=== PATIENT | male | born 1965 | race Caucasian/White ===

== ENCOUNTER 2020-04-26 02:12 | Outpatient (CLI) | payer OTHER, SELFPAY ==
[2020-04-26 10:57] LABS: CREATININE 0.7 mg/dL (0.70-1.30)
== END 2020-04-26 02:13 | disposition home or self-care (01) ==
LOC: LBO 02:12
PROVIDERS: Visit Provider Radiology Radiation Oncology
DX: C34.11 Malignant neoplasm of upper lobe, right bronchus or lung (principal)
CPT/HCPCS: 36415; 82565

== ENCOUNTER 2020-05-08 04:30 | Outpatient (CLI) | payer OTHER, SELFPAY ==
[2020-05-08 08:04] LABS: Abs Immature Grans 0.03 10^3/uL (0.0-0.06); Absolute Basophil Count 0.12 10^3/uL (0.0-0.2); Absolute Eosinophil Count 0.34 10^3/uL (0.0-0.7); Absolute Lymphocyte Count 1.87 10^3/uL (1.2-3.4); Absolute Monocyte Count 0.93 10^3/uL (0.1-0.8); Absolute Neutrophil Count 6.92 10^3/uL (1.2-6.7); Basophils % 1.2; Eosinophils % 3.3; HCT 50.4 % (40.0-50.0); HGB 16.4 g/dL (13.5-17.5); Immature Grans % 0.3; Lymphocytes % 18.3; MCH 28.8 pg (27.0-33.0); MCHC 32.5 % (32.0-36.0); MCV 88.4 fL (80-95); Monocytes % 9.1; Neutrophils % 67.8; Nucleated RBC 0 %; Platelet Count 373 10^3/uL (130-400); RDW 13.3 % (11.8-14.1); RDW-SD 43.4 fL; WBC 10.21 10^3/uL (4.4-10.8)
[2020-05-08 08:12] LABS: ALT 17 U/L (16-63); AST 34 U/L (15-37); Albumin 3.3 g/dL (3.4-5.0); Alkaline Phosphatase 132 U/L (46-116); Anion Gap 7.9 mmol/L (3-11); BUN 9 mg/dL (7-18); Bilirubin, Total 0.5 mg/dL (0.2-1.0); CO2 27.1 mmol/L (21.0-32.0); CREATININE 0.8 mg/dL (0.70-1.30); Calcium 8.7 mg/dL (8.5-10.1); Chloride 102 mmol/L (98-107); Glucose 202 mg/dL (74-106); Magnesium 1.9 mg/dL (1.8-2.4); Potassium 3.8 mmol/L (3.5-5.1); Sodium 137 mmol/L (136-145); Total Protein 7.7 g/dL (6.4-8.2)
== END 2020-05-08 04:31 | disposition home or self-care (01) ==
LOC: LBO 04:30
PROVIDERS: Visit Provider Internal Medicine Medical Oncology
DX: C34.11 Malignant neoplasm of upper lobe, right bronchus or lung (principal)
CPT/HCPCS: 36415; 80053; 83735; 85025

== ENCOUNTER 2020-05-15 04:32 | Outpatient (CLI) | payer OTHER, SELFPAY ==
[2020-05-15 09:45] LABS: Abs Immature Grans 0.07 10^3/uL (0.0-0.06); Absolute Basophil Count 0.08 10^3/uL (0.0-0.2); Absolute Eosinophil Count 0.36 10^3/uL (0.0-0.7); Absolute Lymphocyte Count 1.11 10^3/uL (1.2-3.4); Absolute Monocyte Count 1.03 10^3/uL (0.1-0.8); Basophils % 0.9; Eosinophils % 4.2; HCT 46.8 % (40.0-50.0); HGB 15.5 g/dL (13.5-17.5); Immature Grans % 0.8; MCH 29.2 pg (27.0-33.0); MCHC 33.1 % (32.0-36.0); MCV 88.3 fL (80-95); Neutrophils % 69.1; Nucleated RBC 0 %; Platelet Count 298 10^3/uL (130-400); RDW 13.3 % (11.8-14.1); RDW-SD 42.9 fL; WBC 8.55 10^3/uL (4.4-10.8)
[2020-05-15 10:02] LABS: ALT 16 U/L (16-63); AST 27 U/L (15-37); Albumin 3.3 g/dL (3.4-5.0); Alkaline Phosphatase 122 U/L (46-116); Anion Gap 8.4 mmol/L (3-11); BUN 11 mg/dL (7-18); Bilirubin, Total 0.3 mg/dL (0.2-1.0); CO2 27.6 mmol/L (21.0-32.0); CREATININE 0.7 mg/dL (0.70-1.30); Chloride 104 mmol/L (98-107); Glucose 138 mg/dL (74-106); Potassium 3.7 mmol/L (3.5-5.1); Sodium 140 mmol/L (136-145); Total Protein 7.4 g/dL (6.4-8.2)
== END 2020-05-15 04:33 | disposition home or self-care (01) ==
LOC: LBN 04:32
PROVIDERS: Visit Provider Internal Medicine Medical Oncology
DX: C34.11 Malignant neoplasm of upper lobe, right bronchus or lung (principal)
CPT/HCPCS: 80053; 83735; 85025

== ENCOUNTER 2020-05-22 04:08 | Outpatient (CLI) | payer OTHER, SELFPAY ==
[2020-05-22 08:01] LABS: Abs Immature Grans 0.08 10^3/uL (0.0-0.06); Absolute Basophil Count 0.06 10^3/uL (0.0-0.2); Absolute Lymphocyte Count 0.63 10^3/uL (1.2-3.4); Absolute Monocyte Count 1.01 10^3/uL (0.1-0.8); Absolute Neutrophil Count 5.84 10^3/uL (1.2-6.7); Basophils % 0.8; Eosinophils % 2.6; HCT 43.8 % (40.0-50.0); HGB 14.4 g/dL (13.5-17.5); Lymphocytes % 8.1; MCH 29.1 pg (27.0-33.0); MCHC 32.9 % (32.0-36.0); MCV 88.7 fL (80-95); MPV 8.7 fL (8.0-11.0); Monocytes % 12.9; Neutrophils % 74.6; Nucleated RBC 0 %; Platelet Count 245 10^3/uL (130-400); RBC 4.94 10^6/uL (4.36-5.78); RDW 13.5 % (11.8-14.1); RDW-SD 43.8 fL; WBC 7.82 10^3/uL (4.4-10.8)
[2020-05-22 08:21] LABS: ALT 14 U/L (16-63); AST 24 U/L (15-37); Albumin 3.1 g/dL (3.4-5.0); Alkaline Phosphatase 119 U/L (46-116); Anion Gap 9.8 mmol/L (3-11); BUN 9 mg/dL (7-18); Bilirubin, Total 0.5 mg/dL (0.2-1.0); CO2 27.2 mmol/L (21.0-32.0); CREATININE 0.8 mg/dL (0.70-1.30); Calcium 8.8 mg/dL (8.5-10.1); Chloride 101 mmol/L (98-107); Glucose 163 mg/dL (74-106); Magnesium 1.8 mg/dL (1.8-2.4); Sodium 138 mmol/L (136-145); Total Protein 7.3 g/dL (6.4-8.2)
== END 2020-05-22 04:09 | disposition home or self-care (01) ==
LOC: LBO 04:08
PROVIDERS: PCP Nurse Practitioner Family; Visit Provider Internal Medicine Medical Oncology
DX: C34.11 Malignant neoplasm of upper lobe, right bronchus or lung (principal)
CPT/HCPCS: 36415; 80053; 83735; 85025

== ENCOUNTER 2020-05-29 03:21 | Outpatient (CLI) | payer OTHER, SELFPAY ==
[2020-05-29 07:35] LABS: Abs Immature Grans 0.09 10^3/uL (0.0-0.06); Absolute Basophil Count 0.07 10^3/uL (0.0-0.2); Absolute Eosinophil Count 0.13 10^3/uL (0.0-0.7); Absolute Lymphocyte Count 0.77 10^3/uL (1.2-3.4); Absolute Monocyte Count 0.74 10^3/uL (0.1-0.8); Absolute Neutrophil Count 4.69 10^3/uL (1.2-6.7); Basophils % 1.1; HGB 14.7 g/dL (13.5-17.5); Immature Grans % 1.4; Lymphocytes % 11.9; MCH 29.5 pg (27.0-33.0); MCHC 33.4 % (32.0-36.0); MCV 88.2 fL (80-95); MPV 8.5 fL (8.0-11.0); Monocytes % 11.4; Neutrophils % 72.2; Nucleated RBC 0 %; Platelet Count 269 10^3/uL (130-400); RBC 4.99 10^6/uL (4.36-5.78); RDW 13.8 % (11.8-14.1); WBC 6.49 10^3/uL (4.4-10.8)
[2020-05-29 07:53] LABS: ALT 14 U/L (16-63); AST 17 U/L (15-37); Albumin 3.1 g/dL (3.4-5.0); Alkaline Phosphatase 118 U/L (46-116); Anion Gap 7.5 mmol/L (3-11); BUN 11 mg/dL (7-18); Bilirubin, Total 0.4 mg/dL (0.2-1.0); CO2 26.5 mmol/L (21.0-32.0); CREATININE 0.8 mg/dL (0.70-1.30); Calcium 8.6 mg/dL (8.5-10.1); Chloride 104 mmol/L (98-107); Glucose 162 mg/dL (74-106); Magnesium 1.8 mg/dL (1.8-2.4); Potassium 3.8 mmol/L (3.5-5.1); Sodium 138 mmol/L (136-145); Total Protein 7.3 g/dL (6.4-8.2)
== END 2020-05-29 03:22 | disposition home or self-care (01) ==
LOC: LBO 03:21
PROVIDERS: PCP Nurse Practitioner Family; Visit Provider Internal Medicine Medical Oncology
DX: C34.11 Malignant neoplasm of upper lobe, right bronchus or lung (principal)
CPT/HCPCS: 36415; 80053; 83735; 85025

== ENCOUNTER 2020-06-05 04:19 | Outpatient (CLI) | payer OTHER, SELFPAY ==
[2020-06-05 07:46] LABS: Abs Immature Grans 0.06 10^3/uL (0.0-0.06); Absolute Basophil Count 0.06 10^3/uL (0.0-0.2); Absolute Eosinophil Count 0.16 10^3/uL (0.0-0.7); Absolute Lymphocyte Count 0.92 10^3/uL (1.2-3.4); Absolute Neutrophil Count 3.71 10^3/uL (1.2-6.7); Basophils % 1.1; Eosinophils % 2.9; HCT 45.1 % (40.0-50.0); HGB 14.9 g/dL (13.5-17.5); Immature Grans % 1.1; Lymphocytes % 16.4; MCH 28.8 pg (27.0-33.0); MCV 87.2 fL (80-95); MPV 8.7 fL (8.0-11.0); Monocytes % 12.5; Nucleated RBC 0 %; Platelet Count 211 10^3/uL (130-400); RBC 5.17 10^6/uL (4.36-5.78); RDW 13.9 % (11.8-14.1); RDW-SD 43.8 fL; WBC 5.61 10^3/uL (4.4-10.8)
[2020-06-05 07:59] LABS: ALT 18 U/L (16-63); AST 16 U/L (15-37); Albumin 3.1 g/dL (3.4-5.0); Alkaline Phosphatase 107 U/L (46-116); Anion Gap 7.4 mmol/L (3-11); BUN 12 mg/dL (7-18); Bilirubin, Total 0.4 mg/dL (0.2-1.0); CO2 27.6 mmol/L (21.0-32.0); CREATININE 0.8 mg/dL (0.70-1.30); Calcium 8.6 mg/dL (8.5-10.1); Chloride 103 mmol/L (98-107); Glucose 200 mg/dL (74-106); Magnesium 1.9 mg/dL (1.8-2.4); Potassium 3.9 mmol/L (3.5-5.1); Sodium 138 mmol/L (136-145); Total Protein 7.3 g/dL (6.4-8.2)
== END 2020-06-05 04:20 | disposition home or self-care (01) ==
LOC: LBO 04:19
PROVIDERS: PCP Nurse Practitioner Family; Visit Provider Internal Medicine Medical Oncology
DX: C34.11 Malignant neoplasm of upper lobe, right bronchus or lung (principal)
CPT/HCPCS: 36415; 80053; 83735; 85025

== ENCOUNTER 2020-06-12 02:24 | Outpatient (CLI) | payer OTHER, SELFPAY ==
[2020-06-12 07:34] LABS: HCT 41.9 % (40.0-50.0); HGB 13.9 g/dL (13.5-17.5); MCHC 33.2 % (32.0-36.0); MCV 87.3 fL (80-95); MPV 8.4 fL (8.0-11.0); Nucleated RBC 0 %; Platelet Count 191 10^3/uL (130-400); RDW 13.9 % (11.8-14.1); RDW-SD 44.5 fL; WBC 5.34 10^3/uL (4.4-10.8)
[2020-06-12 07:47] LABS: ALT 17 U/L (16-63); AST 16 U/L (15-37); Alkaline Phosphatase 103 U/L (46-116); Anion Gap 8.7 mmol/L (3-11); BUN 11 mg/dL (7-18); Bilirubin, Total 0.3 mg/dL (0.2-1.0); CO2 27.3 mmol/L (21.0-32.0); CREATININE 0.7 mg/dL (0.70-1.30); Calcium 8.6 mg/dL (8.5-10.1); Chloride 104 mmol/L (98-107); Glucose 139 mg/dL (74-106); Magnesium 1.7 mg/dL (1.8-2.4); Potassium 3.7 mmol/L (3.5-5.1); Sodium 140 mmol/L (136-145); Total Protein 7.2 g/dL (6.4-8.2)
[2020-06-12 08:02] LABS: Absolute Neutrophil Count 3.26 10^3/uL (1.2-6.7)
[2020-06-12 08:03] LABS: Absolute Eosinophil Count 0.11 10^3/uL (0.0-0.7); Absolute Lymphocyte Count 1.17 10^3/uL (1.2-3.4); Atypical Lymphocytes % 9; Diff Comment Manual Differential; RBC Morphology Normal
== END 2020-06-12 02:25 | disposition home or self-care (01) ==
LOC: LBO 02:24
PROVIDERS: PCP Nurse Practitioner Family; Visit Provider Internal Medicine Medical Oncology
DX: C34.11 Malignant neoplasm of upper lobe, right bronchus or lung (principal)
CPT/HCPCS: 36415; 80053; 83735; 85025

== ENCOUNTER 2020-06-19 03:29 | Outpatient (CLI) | payer OTHER, SELFPAY ==
[2020-06-19 07:55] LABS: Abs Immature Grans 0.06 10^3/uL (0.0-0.06); Absolute Basophil Count 0.06 10^3/uL (0.0-0.2); Absolute Eosinophil Count 0.21 10^3/uL (0.0-0.7); Absolute Lymphocyte Count 1.05 10^3/uL (1.2-3.4); Absolute Monocyte Count 0.58 10^3/uL (0.1-0.8); Absolute Neutrophil Count 3.51 10^3/uL (1.2-6.7); Basophils % 1.1; Eosinophils % 3.8; HCT 41.1 % (40.0-50.0); HGB 13.8 g/dL (13.5-17.5); Immature Grans % 1.1; Lymphocytes % 19.2; MCH 29.2 pg (27.0-33.0); MCHC 33.6 % (32.0-36.0); MCV 87.1 fL (80-95); MPV 8.6 fL (8.0-11.0); Monocytes % 10.6; Neutrophils % 64.2; Nucleated RBC 0 %; Platelet Count 214 10^3/uL (130-400); RBC 4.72 10^6/uL (4.36-5.78); RDW 14.1 % (11.8-14.1); RDW-SD 43.9 fL; WBC 5.47 10^3/uL (4.4-10.8)
[2020-06-19 08:11] LABS: ALT 20 U/L (16-63); AST 17 U/L (15-37); Alkaline Phosphatase 100 U/L (46-116); Anion Gap 7.9 mmol/L (3-11); BUN 12 mg/dL (7-18); Bilirubin, Total 0.4 mg/dL (0.2-1.0); CO2 25.1 mmol/L (21.0-32.0); CREATININE 0.8 mg/dL (0.70-1.30); Calcium 8.4 mg/dL (8.5-10.1); Chloride 105 mmol/L (98-107); Glucose 182 mg/dL (74-106); Magnesium 1.8 mg/dL (1.8-2.4); Potassium 3.9 mmol/L (3.5-5.1); Sodium 138 mmol/L (136-145); Total Protein 7.6 g/dL (6.4-8.2)
== END 2020-06-19 03:30 | disposition home or self-care (01) ==
LOC: LBO 03:29
PROVIDERS: PCP Nurse Practitioner Family; Visit Provider Internal Medicine Medical Oncology
DX: C34.11 Malignant neoplasm of upper lobe, right bronchus or lung (principal)
CPT/HCPCS: 36415; 80053; 83735; 85025

== ENCOUNTER 2020-07-17 04:38 | Outpatient (CLI) | payer OTHER, SELFPAY ==
[2020-07-17 13:39] LABS: Abs Immature Grans 0.03 10^3/uL (0.0-0.06); Absolute Basophil Count 0.09 10^3/uL (0.0-0.2); Absolute Eosinophil Count 0.26 10^3/uL (0.0-0.7); Absolute Lymphocyte Count 1.19 10^3/uL (1.2-3.4); Absolute Monocyte Count 0.88 10^3/uL (0.1-0.8); Absolute Neutrophil Count 5.69 10^3/uL (1.2-6.7); Basophils % 1.1; Eosinophils % 3.2; HCT 42.2 % (40.0-50.0); HGB 14.6 g/dL (13.5-17.5); Immature Grans % 0.4; Lymphocytes % 14.6; MCH 30.8 pg (27.0-33.0); MCHC 34.6 % (32.0-36.0); MPV 8.8 fL (8.0-11.0); Monocytes % 10.8; Neutrophils % 69.9; Nucleated RBC 0 %; Platelet Count 311 10^3/uL (130-400); RBC 4.74 10^6/uL (4.36-5.78); RDW 15.5 % (11.8-14.1); RDW-SD 50.7 fL; WBC 8.14 10^3/uL (4.4-10.8)
[2020-07-17 13:52] LABS: ALT 15 U/L (16-63); AST 14 U/L (15-37); Albumin 3.2 g/dL (3.4-5.0); Alkaline Phosphatase 129 U/L (46-116); Anion Gap 6.8 mmol/L (3-11); BUN 15 mg/dL (7-18); Bilirubin, Total 0.3 mg/dL (0.2-1.0); CO2 27.2 mmol/L (21.0-32.0); Calcium 8.7 mg/dL (8.5-10.1); Chloride 103 mmol/L (98-107); Glucose 164 mg/dL (74-106); Magnesium 1.8 mg/dL (1.8-2.4); Potassium 3.7 mmol/L (3.5-5.1); Sodium 137 mmol/L (136-145); Total Protein 7.7 g/dL (6.4-8.2)
== END 2020-07-17 04:39 | disposition home or self-care (01) ==
LOC: LBO 04:38
PROVIDERS: PCP Nurse Practitioner Family; Visit Provider Internal Medicine Medical Oncology
DX: C34.11 Malignant neoplasm of upper lobe, right bronchus or lung (principal)
CPT/HCPCS: 36415; 80053; 83735; 85025

== ENCOUNTER 2020-08-16 02:28 | Outpatient (CLI) | payer OTHER, SELFPAY ==
[2020-08-16 10:45] LABS: Abs Immature Grans 0.09 10^3/uL (0.0-0.06); Absolute Basophil Count 0.07 10^3/uL (0.0-0.2); Absolute Eosinophil Count 0.31 10^3/uL (0.0-0.7); Absolute Lymphocyte Count 1.01 10^3/uL (1.2-3.4); Absolute Monocyte Count 2.34 10^3/uL (0.1-0.8); Basophils % 0.5; Eosinophils % 2.2; HCT 46.9 % (40.0-50.0); HGB 15.9 g/dL (13.5-17.5); Immature Grans % 0.6; Lymphocytes % 7.2; MCH 31.3 pg (27.0-33.0); MCHC 33.9 % (32.0-36.0); MCV 92.3 fL (80-95); MPV 8.8 fL (8.0-11.0); Monocytes % 16.7; Neutrophils % 72.8; Nucleated RBC 0 %; Platelet Count 297 10^3/uL (130-400); RBC 5.08 10^6/uL (4.36-5.78); RDW 14.6 % (11.8-14.1); RDW-SD 49.8 fL
[2020-08-16 10:51] LABS: ALT 14 U/L (16-63); AST 12 U/L (15-37); Albumin 3.2 g/dL (3.4-5.0); Alkaline Phosphatase 133 U/L (46-116); Anion Gap 9.2 mmol/L (3-11); BUN 11 mg/dL (7-18); Bilirubin, Total 0.7 mg/dL (0.2-1.0); CO2 27.8 mmol/L (21.0-32.0); CREATININE 0.8 mg/dL (0.70-1.30); Calcium 8.9 mg/dL (8.5-10.1); Chloride 99 mmol/L (98-107); Glucose 127 mg/dL (74-106); Potassium 3.9 mmol/L (3.5-5.1); Sodium 136 mmol/L (136-145)
[2020-08-16 10:57] LABS: Absolute Neutrophil Count 10.19 10^3/uL (1.2-6.7)
[2020-08-16 10:58] LABS: Diff Comment Diff Reviewed; RBC Morphology Normal
== END 2020-08-16 02:29 | disposition home or self-care (01) ==
LOC: LBO 02:28
PROVIDERS: PCP Nurse Practitioner Family; Visit Provider Internal Medicine Medical Oncology
DX: C34.11 Malignant neoplasm of upper lobe, right bronchus or lung (principal)
CPT/HCPCS: 36415; 80053; 83735; 85025

== ENCOUNTER 2020-09-13 03:34 | Outpatient (CLI) | payer OTHER, SELFPAY ==
[2020-09-13 13:18] LABS: Abs Immature Grans 0.04 10^3/uL (0.0-0.06); Absolute Basophil Count 0.06 10^3/uL (0.0-0.2); Absolute Eosinophil Count 0.43 10^3/uL (0.0-0.7); Absolute Lymphocyte Count 1.07 10^3/uL (1.2-3.4); Absolute Monocyte Count 1.24 10^3/uL (0.1-0.8); Absolute Neutrophil Count 6.44 10^3/uL (1.2-6.7); Basophils % 0.6; Eosinophils % 4.6; HCT 43.1 % (40.0-50.0); HGB 14.2 g/dL (13.5-17.5); Immature Grans % 0.4; Lymphocytes % 11.5; MCH 30.2 pg (27.0-33.0); MCHC 32.9 % (32.0-36.0); MCV 91.7 fL (80-95); MPV 8.6 fL (8.0-11.0); Monocytes % 13.4; Neutrophils % 69.5; Nucleated RBC 0 %; Platelet Count 417 10^3/uL (130-400); RDW-SD 41.2 fL; WBC 9.28 10^3/uL (4.4-10.8)
[2020-09-13 13:44] LABS: ALT 15 U/L (16-63); AST 13 U/L (15-37); Albumin 2.8 g/dL (3.4-5.0); Alkaline Phosphatase 128 U/L (46-116); Anion Gap 8.2 mmol/L (3-11); BUN 13 mg/dL (7-18); Bilirubin, Total 0.2 mg/dL (0.2-1.0); CO2 27.8 mmol/L (21.0-32.0); CREATININE 0.8 mg/dL (0.70-1.30); Calcium 8.9 mg/dL (8.5-10.1); Chloride 102 mmol/L (98-107); FREE T4 1.39 ng/dL (0.76-1.46); Glucose 193 mg/dL (74-106); Magnesium 1.9 mg/dL (1.8-2.4); Potassium 3.5 mmol/L (3.5-5.1); Sodium 138 mmol/L (136-145); Total Protein 7.5 g/dL (6.4-8.2)
[2020-09-13 13:45] LABS: TSH < 0.01 uIU/mL (0.36-3.74)
== END 2020-09-13 03:35 | disposition home or self-care (01) ==
LOC: LBO 03:34
PROVIDERS: PCP Nurse Practitioner Family; Visit Provider Internal Medicine Medical Oncology
DX: C34.11 Malignant neoplasm of upper lobe, right bronchus or lung (principal); Z79.899 Other long term (current) drug therapy
CPT/HCPCS: 36415; 80053; 83735; 84439; 84443; 85025

== ENCOUNTER 2020-10-09 03:37 | Outpatient (CLI) | payer OTHER, SELFPAY ==
[2020-10-09 14:26] LABS: Abs Immature Grans 0.04 10^3/uL (0.0-0.06); Absolute Basophil Count 0.08 10^3/uL (0.0-0.2); Absolute Lymphocyte Count 1.15 10^3/uL (1.2-3.4); Absolute Monocyte Count 0.89 10^3/uL (0.1-0.8); Absolute Neutrophil Count 6.21 10^3/uL (1.2-6.7); Basophils % 0.9; Eosinophils % 5.6; HCT 47.3 % (40.0-50.0); HGB 15.4 g/dL (13.5-17.5); Immature Grans % 0.5; MCH 29.1 pg (27.0-33.0); MCHC 32.6 % (32.0-36.0); MCV 89.4 fL (80-95); MPV 8.8 fL (8.0-11.0); Nucleated RBC 0 %; Platelet Count 374 10^3/uL (130-400); RBC 5.29 10^6/uL (4.36-5.78); RDW 12.4 % (11.8-14.1); WBC 8.87 10^3/uL (4.4-10.8)
[2020-10-09 14:35] LABS: Magnesium 1.8 mg/dL (1.8-2.4)
[2020-10-09 14:51] LABS: ALT 14 U/L (16-63); AST 14 U/L (15-37); Albumin 2.9 g/dL (3.4-5.0); Alkaline Phosphatase 143 U/L (46-116); Anion Gap 7.8 mmol/L (3-11); BUN 12 mg/dL (7-18); Bilirubin, Total 0.2 mg/dL (0.2-1.0); CO2 27.2 mmol/L (21.0-32.0); CREATININE 0.9 mg/dL (0.70-1.30); Calcium 9.1 mg/dL (8.5-10.1); Chloride 102 mmol/L (98-107); FREE T4 1.08 ng/dL (0.76-1.46); Glucose 187 mg/dL (74-106); Potassium 3.7 mmol/L (3.5-5.1); Sodium 137 mmol/L (136-145); Total Protein 7.6 g/dL (6.4-8.2)
[2020-10-09 14:52] LABS: TSH < 0.01 uIU/mL (0.36-3.74)
== END 2020-10-09 03:38 | disposition home or self-care (01) ==
LOC: LBO 03:37
PROVIDERS: PCP Nurse Practitioner Family; Visit Provider Internal Medicine Medical Oncology
DX: C34.11 Malignant neoplasm of upper lobe, right bronchus or lung (principal); Z79.899 Other long term (current) drug therapy
CPT/HCPCS: 36415; 80053; 83735; 84439; 84443; 85025

== ENCOUNTER 2020-11-06 03:23 | Outpatient (CLI) | payer OTHER, SELFPAY ==
[2020-11-06 12:32] LABS: Abs Immature Grans 0.03 10^3/uL (0.0-0.06); Absolute Basophil Count 0.09 10^3/uL (0.0-0.2); Absolute Eosinophil Count 0.38 10^3/uL (0.0-0.7); Absolute Lymphocyte Count 1.28 10^3/uL (1.2-3.4); Absolute Neutrophil Count 6.42 10^3/uL (1.2-6.7); Basophils % 0.9; HCT 48.4 % (40.0-50.0); HGB 15.9 g/dL (13.5-17.5); Immature Grans % 0.3; Lymphocytes % 13.5; MCH 28.5 pg (27.0-33.0); MCHC 32.9 % (32.0-36.0); MCV 86.7 fL (80-95); MPV 8.8 fL (8.0-11.0); Monocytes % 13.7; Neutrophils % 67.6; Nucleated RBC 0 %; Platelet Count 323 10^3/uL (130-400); RBC 5.58 10^6/uL (4.36-5.78); RDW 13.8 % (11.8-14.1); RDW-SD 44.1 fL
[2020-11-06 14:02] LABS: ALT 13 U/L (16-63); AST 14 U/L (15-37); Albumin 3.2 g/dL (3.4-5.0); Alkaline Phosphatase 149 U/L (46-116); Anion Gap 9.3 mmol/L (3-11); BUN 14 mg/dL (7-18); Bilirubin, Total 0.3 mg/dL (0.2-1.0); CO2 24.7 mmol/L (21.0-32.0); CREATININE 0.7 mg/dL (0.70-1.30); Calcium 8.8 mg/dL (8.5-10.1); Chloride 103 mmol/L (98-107); FREE T4 0.81 ng/dL (0.76-1.46); Glucose 115 mg/dL (74-106); Potassium 3.8 mmol/L (3.5-5.1); Sodium 137 mmol/L (136-145); TSH 0.12 uIU/mL (0.36-3.74); Total Protein 7.7 g/dL (6.4-8.2)
== END 2020-11-06 03:24 | disposition home or self-care (01) ==
LOC: LBO 03:23
PROVIDERS: PCP Nurse Practitioner Family; Visit Provider Internal Medicine Medical Oncology
DX: C34.11 Malignant neoplasm of upper lobe, right bronchus or lung (principal); Z79.899 Other long term (current) drug therapy
CPT/HCPCS: 36415; 80053; 83735; 84439; 84443; 85025

== ENCOUNTER 2020-12-04 02:42 | Outpatient (CLI) | payer OTHER, SELFPAY ==
[2020-12-04 13:05] LABS: Abs Immature Grans 0.02 10^3/uL (0.0-0.06); Absolute Basophil Count 0.11 10^3/uL (0.0-0.2); Absolute Eosinophil Count 0.47 10^3/uL (0.0-0.7); Absolute Lymphocyte Count 1.27 10^3/uL (1.2-3.4); Absolute Monocyte Count 1.15 10^3/uL (0.1-0.8); Absolute Neutrophil Count 5.35 10^3/uL (1.2-6.7); Basophils % 1.3; Eosinophils % 5.6; HCT 50.5 % (40.0-50.0); HGB 16.6 g/dL (13.5-17.5); Immature Grans % 0.2; Lymphocytes % 15.2; MCH 29.4 pg (27.0-33.0); MCHC 32.9 % (32.0-36.0); MCV 89.5 fL (80-95); MPV 8.6 fL (8.0-11.0); Monocytes % 13.7; Nucleated RBC 0 %; Platelet Count 284 10^3/uL (130-400); RBC 5.64 10^6/uL (4.36-5.78); RDW-SD 52.6 fL; WBC 8.37 10^3/uL (4.4-10.8)
[2020-12-04 13:28] LABS: ALT 12 U/L (16-63); AST 17 U/L (15-37); Albumin 3.4 g/dL (3.4-5.0); Alkaline Phosphatase 144 U/L (46-116); BUN 12 mg/dL (7-18); Bilirubin, Total 0.3 mg/dL (0.2-1.0); CREATININE 0.8 mg/dL (0.70-1.30); Chloride 103 mmol/L (98-107); FREE T4 0.74 ng/dL (0.76-1.46); Glucose 126 mg/dL (74-106); Potassium 3.8 mmol/L (3.5-5.1); Sodium 141 mmol/L (136-145); TSH 1.25 uIU/mL (0.36-3.74); Total Protein 7.4 g/dL (6.4-8.2)
== END 2020-12-04 02:43 | disposition home or self-care (01) ==
LOC: LBO 02:42
PROVIDERS: PCP Nurse Practitioner Family; Visit Provider Internal Medicine Medical Oncology
DX: C34.11 Malignant neoplasm of upper lobe, right bronchus or lung (principal); Z79.899 Other long term (current) drug therapy
CPT/HCPCS: 36415; 80053; 83735; 84439; 84443; 85025

== ENCOUNTER 2021-01-01 13:05 | Outpatient (CLI) | payer OTHER, SELFPAY ==
[2021-01-01 13:35] LABS: Abs Immature Grans 0.05 10^3/uL (0.0-0.06); Absolute Basophil Count 0.11 10^3/uL (0.0-0.2); Absolute Lymphocyte Count 1.47 10^3/uL (1.2-3.4); Absolute Neutrophil Count 5.57 10^3/uL (1.2-6.7); Basophils % 1.3; Eosinophils % 4.5; HCT 52.8 % (40.0-50.0); HGB 17.4 g/dL (13.5-17.5); Immature Grans % 0.6; Lymphocytes % 16.7; MCH 29.5 pg (27.0-33.0); MCV 89.5 fL (80-95); MPV 8.6 fL (8.0-11.0); Monocytes % 13.6; Neutrophils % 63.3; Nucleated RBC 0 %; Platelet Count 281 10^3/uL (130-400); RDW 16.6 % (11.8-14.1); RDW-SD 54.7 fL
[2021-01-01 13:57] LABS: ALT 19 U/L (16-63); AST 20 U/L (15-37); Albumin 3.5 g/dL (3.4-5.0); Alkaline Phosphatase 124 U/L (46-116); Anion Gap 6.5 mmol/L (3-11); BUN 16 mg/dL (7-18); Bilirubin, Total 0.3 mg/dL (0.2-1.0); CO2 29.5 mmol/L (21.0-32.0); CREATININE 0.8 mg/dL (0.70-1.30); Calcium 8.7 mg/dL (8.5-10.1); Chloride 103 mmol/L (98-107); FREE T4 0.76 ng/dL (0.76-1.46); Glucose 134 mg/dL (74-106); Potassium 3.9 mmol/L (3.5-5.1); Sodium 139 mmol/L (136-145); TSH 1.59 uIU/mL (0.36-3.74); Total Protein 7.6 g/dL (6.4-8.2)
== END 2021-01-01 13:06 | disposition home or self-care (01) ==
PROVIDERS: PCP Nurse Practitioner Family; Visit Provider Internal Medicine Medical Oncology
DX: C34.11 Malignant neoplasm of upper lobe, right bronchus or lung (principal); Z79.899 Other long term (current) drug therapy
CPT/HCPCS: 36415; 80053; 83735; 84439; 84443; 85025

== ENCOUNTER 2021-01-29 09:58 | Outpatient (CLI) | payer OTHER, SELFPAY ==
[2021-01-29 13:12] LABS: Abs Immature Grans 0.07 10^3/uL (0.0-0.06); Absolute Lymphocyte Count 1.43 10^3/uL (1.2-3.4); Absolute Monocyte Count 1.29 10^3/uL (0.1-0.8); Absolute Neutrophil Count 7.63 10^3/uL (1.2-6.7); Basophils % 0.9; Eosinophils % 4.5; HCT 53.1 % (40.0-50.0); HGB 17.6 g/dL (13.5-17.5); Immature Grans % 0.6; MCH 30.2 pg (27.0-33.0); MCHC 33.1 % (32.0-36.0); MCV 91.2 fL (80-95); MPV 8.7 fL (8.0-11.0); Monocytes % 11.7; Neutrophils % 69.3; Nucleated RBC 0 %; Platelet Count 295 10^3/uL (130-400); RBC 5.82 10^6/uL (4.36-5.78); RDW 14.6 % (11.8-14.1); RDW-SD 49.1 fL; WBC 11.01 10^3/uL (4.4-10.8)
[2021-01-29 13:33] LABS: ALT 12 U/L (16-63); AST 12 U/L (15-37); Albumin 3.5 g/dL (3.4-5.0); Alkaline Phosphatase 145 U/L (46-116); Anion Gap 5.1 mmol/L (3-11); BUN 16 mg/dL (7-18); Bilirubin, Total 0.2 mg/dL (0.2-1.0); CO2 29.9 mmol/L (21.0-32.0); CREATININE 0.8 mg/dL (0.70-1.30); Chloride 104 mmol/L (98-107); FREE T4 0.82 ng/dL (0.76-1.46); Glucose 154 mg/dL (74-106); Magnesium 2.2 mg/dL (1.8-2.4); Potassium 3.8 mmol/L (3.5-5.1); Sodium 139 mmol/L (136-145); TSH 0.72 uIU/mL (0.36-3.74); Total Protein 7.7 g/dL (6.4-8.2)
== END 2021-01-29 09:59 | disposition home or self-care (01) ==
LOC: LBO 10:02
PROVIDERS: PCP Nurse Practitioner Family; Visit Provider Internal Medicine Medical Oncology
DX: C34.11 Malignant neoplasm of upper lobe, right bronchus or lung (principal); Z79.899 Other long term (current) drug therapy
CPT/HCPCS: 36415; 80053; 83735; 84439; 84443; 85025

== ENCOUNTER 2021-02-28 02:01 | Outpatient (CLI) | payer BC, SELFPAY ==
[2021-02-28 13:07] LABS: Abs Immature Grans 0.03 10^3/uL (0.0-0.06); Absolute Basophil Count 0.07 10^3/uL (0.0-0.2); Absolute Eosinophil Count 0.38 10^3/uL (0.0-0.7); Absolute Monocyte Count 1.15 10^3/uL (0.1-0.8); Absolute Neutrophil Count 5.71 10^3/uL (1.2-6.7); Basophils % 0.8; Eosinophils % 4.4; HCT 51.9 % (40.0-50.0); HGB 17.4 g/dL (13.5-17.5); Immature Grans % 0.3; MCH 30.4 pg (27.0-33.0); MCHC 33.5 % (32.0-36.0); MCV 90.7 fL (80-95); MPV 8.5 fL (8.0-11.0); Monocytes % 13.3; Neutrophils % 66.2; Nucleated RBC 0 %; Platelet Count 298 10^3/uL (130-400); RBC 5.72 10^6/uL (4.36-5.78); RDW 13.2 % (11.8-14.1); RDW-SD 44.2 fL; WBC 8.64 10^3/uL (4.4-10.8)
[2021-02-28 13:28] LABS: ALT 14 U/L (16-63); AST 15 U/L (15-37); Albumin 3.3 g/dL (3.4-5.0); Alkaline Phosphatase 137 U/L (46-116); Anion Gap 6.2 mmol/L (3-11); BUN 18 mg/dL (7-18); Bilirubin, Total 0.3 mg/dL (0.2-1.0); CO2 27.8 mmol/L (21.0-32.0); CREATININE 0.9 mg/dL (0.70-1.30); Calcium 8.8 mg/dL (8.5-10.1); Chloride 102 mmol/L (98-107); FREE T4 0.86 ng/dL (0.76-1.46); Glucose 221 mg/dL (74-106); Potassium 3.6 mmol/L (3.5-5.1); Sodium 136 mmol/L (136-145); TSH 0.68 uIU/mL (0.36-3.74); Total Protein 7.5 g/dL (6.4-8.2)
== END 2021-02-28 02:02 | disposition home or self-care (01) ==
LOC: LBO 02:01
PROVIDERS: PCP Nurse Practitioner Family; Visit Provider Internal Medicine Medical Oncology
DX: C34.11 Malignant neoplasm of upper lobe, right bronchus or lung (principal); Z79.899 Other long term (current) drug therapy
CPT/HCPCS: 36415; 80053; 83735; 84439; 84443; 85025

== ENCOUNTER 2021-03-26 01:29 | Outpatient (CLI) | payer BC, SELFPAY | END 2021-03-26 01:30 | disposition home or self-care (01) | LOC: LBO 01:31 | PROVIDERS: PCP Nurse Practitioner Family; Visit Provider Internal Medicine Medical Oncology ==

== ENCOUNTER 2021-03-28 02:28 | Outpatient (CLI) | payer BC, SELFPAY ==
[2021-03-28 12:58] LABS: Abs Immature Grans 0.05 10^3/uL (0.0-0.06); Absolute Lymphocyte Count 1.72 10^3/uL (1.2-3.4); Absolute Monocyte Count 1.44 10^3/uL (0.1-0.8); Absolute Neutrophil Count 6.18 10^3/uL (1.2-6.7); HCT 50.1 % (40.0-50.0); HGB 16.9 g/dL (13.5-17.5); Immature Grans % 0.5; Lymphocytes % 17.4; MCH 31.2 pg (27.0-33.0); MCHC 33.7 % (32.0-36.0); MCV 92.6 fL (80-95); MPV 8.7 fL (8.0-11.0); Monocytes % 14.6; Neutrophils % 62.5; Nucleated RBC 0 %; Platelet Count 300 10^3/uL (130-400); RBC 5.41 10^6/uL (4.36-5.78); RDW 13.2 % (11.8-14.1); RDW-SD 45.1 fL; WBC 9.89 10^3/uL (4.4-10.8)
[2021-03-28 13:19] LABS: ALT 13 U/L (16-63); AST 19 U/L (15-37); Albumin 3.5 g/dL (3.4-5.0); Alkaline Phosphatase 126 U/L (46-116); Anion Gap 6.5 mmol/L (3-11); BUN 18 mg/dL (7-18); Bilirubin, Total 0.3 mg/dL (0.2-1.0); CO2 27.5 mmol/L (21.0-32.0); CREATININE 0.9 mg/dL (0.70-1.30); Calcium 8.8 mg/dL (8.5-10.1); Chloride 102 mmol/L (98-107); FREE T4 0.87 ng/dL (0.76-1.46); Glucose 131 mg/dL (74-106); Magnesium 2.2 mg/dL (1.8-2.4); Potassium 3.9 mmol/L (3.5-5.1); Sodium 136 mmol/L (136-145); TSH 0.88 uIU/mL (0.36-3.74); Total Protein 7.5 g/dL (6.4-8.2)
== END 2021-03-28 02:29 | disposition home or self-care (01) ==
LOC: LBO 02:28
PROVIDERS: Internal Medicine Medical Oncology; PCP Nurse Practitioner Family; Visit Provider Family Medicine
DX: C34.11 Malignant neoplasm of upper lobe, right bronchus or lung (principal); Z79.899 Other long term (current) drug therapy
CPT/HCPCS: 36415; 80053; 83735; 84439; 84443; 85025

== ENCOUNTER 2021-04-23 13:17 | Outpatient (CLI) | payer BC, SELFPAY ==
[2021-04-23 13:10] LABS: Abs Immature Grans 0.03 10^3/uL (0.0-0.06); Absolute Basophil Count 0.11 10^3/uL (0.0-0.2); Absolute Eosinophil Count 0.34 10^3/uL (0.0-0.7); Absolute Monocyte Count 0.86 10^3/uL (0.1-0.8); Absolute Neutrophil Count 5.76 10^3/uL (1.2-6.7); Basophils % 1.3; HCT 47.9 % (40.0-50.0); HGB 16.1 g/dL (13.5-17.5); Immature Grans % 0.3; Lymphocytes % 17.4; MCH 31.4 pg (27.0-33.0); MCHC 33.6 % (32.0-36.0); MCV 93.4 fL (80-95); MPV 8.8 fL (8.0-11.0); Nucleated RBC 0 %; Platelet Count 261 10^3/uL (130-400); RBC 5.13 10^6/uL (4.36-5.78); RDW 13.1 % (11.8-14.1); RDW-SD 45.2 fL
[2021-04-23 13:38] LABS: ALT 21 U/L (16-63); AST 15 U/L (15-37); Albumin 3.4 g/dL (3.4-5.0); Alkaline Phosphatase 122 U/L (46-116); Anion Gap 8.1 mmol/L (3-11); BUN 14 mg/dL (7-18); Bilirubin, Total 0.3 mg/dL (0.2-1.0); CO2 26.9 mmol/L (21.0-32.0); Calcium 8.6 mg/dL (8.5-10.1); Chloride 105 mmol/L (98-107); FREE T4 0.81 ng/dL (0.76-1.46); Glucose 174 mg/dL (74-106); Potassium 3.7 mmol/L (3.5-5.1); Sodium 140 mmol/L (136-145); TSH 1.02 uIU/mL (0.36-3.74); Total Protein 7.3 g/dL (6.4-8.2)
== END 2021-04-23 13:18 | disposition home or self-care (01) ==
LOC: LBO 13:20
PROVIDERS: PCP Nurse Practitioner Family; Visit Provider Internal Medicine Medical Oncology
DX: C34.11 Malignant neoplasm of upper lobe, right bronchus or lung (principal); Z79.899 Other long term (current) drug therapy
CPT/HCPCS: 36415; 80053; 83735; 84439; 84443; 85025

== ENCOUNTER 2021-05-21 02:39 | Outpatient (CLI) | payer BC, SELFPAY ==
[2021-05-21 10:52] LABS: FREE T4 0.95 ng/dL (0.76-1.46); TSH 0.95 uIU/mL (0.36-3.74)
[2021-05-21 11:03] LABS: Abs Immature Grans 0.03 10^3/uL (0.0-0.06); Absolute Basophil Count 0.08 10^3/uL (0.0-0.2); Absolute Eosinophil Count 0.19 10^3/uL (0.0-0.7); Absolute Lymphocyte Count 1.53 10^3/uL (1.2-3.4); Absolute Monocyte Count 1.06 10^3/uL (0.1-0.8); Absolute Neutrophil Count 6.31 10^3/uL (1.2-6.7); Basophils % 0.9; Eosinophils % 2.1; HCT 50.2 % (40.0-50.0); HGB 16.6 g/dL (13.5-17.5); Immature Grans % 0.3; Lymphocytes % 16.6; MCH 30.9 pg (27.0-33.0); MCHC 33.1 % (32.0-36.0); MCV 93.5 fL (80-95); Monocytes % 11.5; Neutrophils % 68.6; Nucleated RBC 0 %; Platelet Count 297 10^3/uL (130-400); RBC 5.37 10^6/uL (4.36-5.78); RDW 12.6 % (11.8-14.1); RDW-SD 43.8 fL
[2021-05-21 11:38] LABS: Magnesium 2.2 mg/dL (1.8-2.4)
[2021-05-21 12:21] LABS: ALT 22 U/L (16-63); AST 21 U/L (15-37); Albumin 3.7 g/dL (3.4-5.0); Alkaline Phosphatase 136 U/L (46-116); BUN 12 mg/dL (7-18); Bilirubin, Total 0.4 mg/dL (0.2-1.0); Calcium 8.6 mg/dL (8.5-10.1); Chloride 101 mmol/L (98-107); Glucose 141 mg/dL (74-106); Potassium 3.9 mmol/L (3.5-5.1); Sodium 138 mmol/L (136-145); Total Protein 7.7 g/dL (6.4-8.2)
== END 2021-05-21 02:40 | disposition home or self-care (01) ==
LOC: LBO 02:39
PROVIDERS: PCP Nurse Practitioner Family; Visit Provider Internal Medicine Medical Oncology
DX: C34.11 Malignant neoplasm of upper lobe, right bronchus or lung (principal); Z79.899 Other long term (current) drug therapy
CPT/HCPCS: 36415; 80053; 83735; 84439; 84443; 85025

== ENCOUNTER 2021-06-18 01:42 | Outpatient (CLI) | payer BC, SELFPAY ==
[2021-06-18 09:43] LABS: Abs Immature Grans 0.05 10^3/uL (0.0-0.06); Absolute Eosinophil Count 0.24 10^3/uL (0.0-0.7); Absolute Lymphocyte Count 1.46 10^3/uL (1.2-3.4); Absolute Monocyte Count 0.98 10^3/uL (0.1-0.8); Absolute Neutrophil Count 6.03 10^3/uL (1.2-6.7); Basophils % 1.1; Eosinophils % 2.7; HCT 50.4 % (40.0-50.0); HGB 16.4 g/dL (13.5-17.5); Immature Grans % 0.6; Lymphocytes % 16.5; MCH 29.9 pg (27.0-33.0); MCHC 32.5 % (32.0-36.0); MCV 92 fL (80-95); MPV 8.6 fL (8.0-11.0); Monocytes % 11.1; Platelet Count 279 10^3/uL (130-400); RBC 5.49 10^6/uL (4.36-5.78); RDW 12.1 % (11.8-14.1); RDW-SD 41.1 fL; WBC 8.86 10^3/uL (4.4-10.8)
[2021-06-18 10:05] LABS: ALT 22 U/L (16-63); AST 18 U/L (15-37); Albumin 3.5 g/dL (3.4-5.0); Alkaline Phosphatase 117 U/L (46-116); Anion Gap 6.6 mmol/L (3-11); BUN 17 mg/dL (7-18); Bilirubin, Total 0.4 mg/dL (0.2-1.0); CO2 28.4 mmol/L (21.0-32.0); CREATININE 0.8 mg/dL (0.70-1.30); Calcium 8.7 mg/dL (8.5-10.1); Chloride 102 mmol/L (98-107); FREE T4 0.81 ng/dL (0.76-1.46); Glucose 116 mg/dL (74-106); Magnesium 2.1 mg/dL (1.8-2.4); Potassium 3.9 mmol/L (3.5-5.1); Sodium 137 mmol/L (136-145); TSH 1.07 uIU/mL (0.36-3.74); Total Protein 7.4 g/dL (6.4-8.2)
== END 2021-06-18 01:43 | disposition home or self-care (01) ==
PROVIDERS: PCP Nurse Practitioner Family; Visit Provider Nurse Practitioner Adult Health
DX: C34.11 Malignant neoplasm of upper lobe, right bronchus or lung (principal); Z79.899 Other long term (current) drug therapy
CPT/HCPCS: 36415; 80053; 83735; 84439; 84443; 85025

== ENCOUNTER 2021-08-08 01:45 | Outpatient (CLI) | payer BC, SELFPAY ==
[2021-08-08 12:24] LABS: Abs Immature Grans 0.05 10^3/uL (0.0-0.06); Absolute Basophil Count 0.08 10^3/uL (0.0-0.2); Absolute Eosinophil Count 0.39 10^3/uL (0.0-0.7); Absolute Lymphocyte Count 1.47 10^3/uL (1.2-3.4); Absolute Monocyte Count 1.13 10^3/uL (0.1-0.8); Absolute Neutrophil Count 4.73 10^3/uL (1.2-6.7); HCT 48.2 % (40.0-50.0); HGB 16.3 g/dL (13.5-17.5); Immature Grans % 0.6; Lymphocytes % 18.7; MCH 29.7 pg (27.0-33.0); MCHC 33.8 % (32.0-36.0); MCV 88 fL (80-95); MPV 8.7 fL (8.0-11.0); Monocytes % 14.4; Neutrophils % 60.3; Platelet Count 333 10^3/uL (130-400); RBC 5.48 10^6/uL (4.36-5.78); RDW-SD 45.1 fL; WBC 7.85 10^3/uL (4.4-10.8)
[2021-08-08 12:48] LABS: ALT 19 U/L (16-63); AST 17 U/L (15-37); Albumin 3.3 g/dL (3.4-5.0); Alkaline Phosphatase 123 U/L (46-116); Anion Gap 6.9 mmol/L (3-11); BUN 9 mg/dL (7-18); Bilirubin, Total 0.4 mg/dL (0.2-1.0); CO2 29.1 mmol/L (21.0-32.0); CREATININE 0.9 mg/dL (0.70-1.30); Calcium 8.8 mg/dL (8.5-10.1); Chloride 101 mmol/L (98-107); FREE T4 0.94 ng/dL (0.76-1.46); Glucose 132 mg/dL (74-106); Magnesium 1.9 mg/dL (1.8-2.4); Potassium 3.8 mmol/L (3.5-5.1); Sodium 137 mmol/L (136-145); Total Protein 7.2 g/dL (6.4-8.2)
== END 2021-08-08 01:46 | disposition home or self-care (01) ==
PROVIDERS: PCP Nurse Practitioner Family; Visit Provider Nurse Practitioner Adult Health
DX: C34.11 Malignant neoplasm of upper lobe, right bronchus or lung (principal)
CPT/HCPCS: 36415; 80053; 83735; 84439; 84443; 85025

== ENCOUNTER 2022-03-27 11:36 | Outpatient (CLI) | payer OTHER, SELFPAY ==
[2022-03-27 11:18] LABS: Abs Immature Grans 0.07 10^3/uL (0.0-0.06); HCT 46.9 % (40.0-50.0); HGB 15.4 g/dL (13.5-17.5); MCH 27.8 pg (27.0-33.0); MCHC 32.8 % (32.0-36.0); MCV 85 fL (80-95); Platelet Count 202 10^3/uL (130-400); RBC 5.54 10^6/uL (4.36-5.78); RDW 15.4 % (11.8-14.1); RDW-SD 47.2 fL; WBC 12.18 10^3/uL (4.4-10.8)
[2022-03-27 11:32] LABS: Absolute Basophil Count 0.24 10^3/uL (0.0-0.2); Absolute Eosinophil Count 0.85 10^3/uL (0.0-0.7); Absolute Lymphocyte Count 1.95 10^3/uL (1.2-3.4); Absolute Monocyte Count 1.34 10^3/uL (0.1-0.8); Atypical Lymphocytes % 4; Bands % 0; Diff Comment Manual Differential; RBC Morphology Normal
[2022-03-27 11:47] LABS: ALT 14 U/L (16-63); AST 23 U/L (15-37); Albumin 3.9 g/dL (3.4-5.0); Alkaline Phosphatase 154 U/L (46-116); Anion Gap 8.5 mmol/L (3-11); BUN 14 mg/dL (7-18); Bilirubin, Total 0.4 mg/dL (0.2-1.0); CO2 27.5 mmol/L (21.0-32.0); CREATININE 0.9 mg/dL (0.70-1.30); Calcium 9.2 mg/dL (8.5-10.1); Chloride 101 mmol/L (98-107); FREE T4 0.88 ng/dL (0.76-1.46); Glucose 116 mg/dL (74-106); Magnesium 2.2 mg/dL (1.8-2.4); Potassium 4.2 mmol/L (3.5-5.1); Sodium 137 mmol/L (136-145); TSH 0.91 uIU/mL (0.36-3.74); Total Protein 7.7 g/dL (6.4-8.2)
== END 2022-03-27 11:37 | disposition home or self-care (01) ==
LOC: LBO 11:36
PROVIDERS: Visit Provider Nurse Practitioner Adult Health
DX: C34.11 Malignant neoplasm of upper lobe, right bronchus or lung (principal)
CPT/HCPCS: 36415; 80053; 83735; 84439; 84443; 85025

== ENCOUNTER 2022-05-20 01:40 | Outpatient (CLI) | payer OTHER, SELFPAY ==
[2022-05-20 07:47] LABS: Abs Immature Grans 0.07 10^3/uL (0.0-0.06); Absolute Eosinophil Count 0.48 10^3/uL (0.0-0.7); Absolute Lymphocyte Count 1.45 10^3/uL (1.2-3.4); Absolute Monocyte Count 1.34 10^3/uL (0.1-0.8); Basophils % 1.1; Eosinophils % 3.4; HCT 49.2 % (40.0-50.0); HGB 16.2 g/dL (13.5-17.5); Immature Grans % 0.5; Lymphocytes % 10.2; MCH 28.2 pg (27.0-33.0); MCHC 32.9 % (32.0-36.0); MCV 86 fL (80-95); MPV 8.9 fL (8.0-11.0); Monocytes % 9.4; Neutrophils % 75.4; Platelet Count 475 10^3/uL (130-400); RBC 5.75 10^6/uL (4.36-5.78); RDW 14.3 % (11.8-14.1); RDW-SD 45.1 fL; WBC 14.26 10^3/uL (4.4-10.8)
[2022-05-20 07:48] LABS: Absolute Basophil Count 0.16 10^3/uL (0.0-0.2); Absolute Neutrophil Count 10.75 10^3/uL (1.2-6.7)
[2022-05-20 08:18] LABS: Iron 40 ug/dL (65-175); Total Iron Binding Capacity 314 ug/dL (250-450); Transferrin Sat 13 % (20-55)
[2022-05-20 08:32] LABS: ALT 27 U/L (16-63); AST 28 U/L (15-37); Albumin 3.4 g/dL (3.4-5.0); Alkaline Phosphatase 165 U/L (46-116); Anion Gap 6.9 mmol/L (3-11); BUN 12 mg/dL (7-18); Bilirubin, Total 0.5 mg/dL (0.2-1.0); CO2 28.1 mmol/L (21.0-32.0); CREATININE 0.9 mg/dL (0.70-1.30); Chloride 102 mmol/L (98-107); FREE T4 1.12 ng/dL (0.76-1.46); Glucose 163 mg/dL (74-106); Magnesium 2.1 mg/dL (1.8-2.4); Sodium 137 mmol/L (136-145); Total Protein 7.7 g/dL (6.4-8.2)
[2022-05-20 08:57] LABS: Ferritin 182 ng/mL (26-388)
== END 2022-05-20 01:41 | disposition home or self-care (01) ==
PROVIDERS: Internal Medicine Medical Oncology; Visit Provider Nurse Practitioner Adult Health
DX: C34.11 Malignant neoplasm of upper lobe, right bronchus or lung (principal); D45 Polycythemia vera
CPT/HCPCS: 36415; 80053; 82728; 83540; 83550; 83735; 84439; 84443; 85025

== ENCOUNTER 2022-06-10 13:56 | Outpatient (CLI) | payer OTHER, SELFPAY ==
[2022-06-10 09:58] LABS: Abs Immature Grans 0.09 10^3/uL (0.0-0.06); Absolute Basophil Count 0.05 10^3/uL (0.0-0.2); Absolute Eosinophil Count 0.29 10^3/uL (0.0-0.7); Absolute Lymphocyte Count 1.49 10^3/uL (1.2-3.4); Absolute Monocyte Count 1.17 10^3/uL (0.1-0.8); Basophils % 0.6; Eosinophils % 3.4; HCT 42.8 % (40.0-50.0); HGB 14.4 g/dL (13.5-17.5); Lymphocytes % 17.3; MCHC 33.6 % (32.0-36.0); MCV 86 fL (80-95); MPV 8.4 fL (8.0-11.0); Monocytes % 13.6; Neutrophils % 64.1; Platelet Count 531 10^3/uL (130-400); RBC 4.96 10^6/uL (4.36-5.78); RDW 15.2 % (11.8-14.1); RDW-SD 46.5 fL; WBC 8.59 10^3/uL (4.4-10.8)
[2022-06-10 10:16] LABS: Iron 46 ug/dL (65-175); Total Iron Binding Capacity 257 ug/dL (250-450); Transferrin Sat 18 % (20-55)
[2022-06-10 10:32] LABS: ALT 22 U/L (16-63); AST 21 U/L (15-37); Albumin 3.2 g/dL (3.4-5.0); Alkaline Phosphatase 144 U/L (46-116); Anion Gap 6.6 mmol/L (3-11); BUN 8 mg/dL (7-18); Bilirubin, Total 0.3 mg/dL (0.2-1.0); CO2 28.4 mmol/L (21.0-32.0); CREATININE 0.9 mg/dL (0.70-1.30); Chloride 102 mmol/L (98-107); Estimated GFR 98.38 (mL/min/1.73m2); Ferritin 173 ng/mL (26-388); Glucose 194 mg/dL (74-106); Magnesium 1.7 mg/dL (1.8-2.4); Potassium 3.6 mmol/L (3.5-5.1); Sodium 137 mmol/L (136-145); TSH 0.26 uIU/mL (0.36-3.74); Total Protein 7.8 g/dL (6.4-8.2)
[2022-06-10 10:58] LABS: FREE T4 1.08 ng/dL (0.76-1.46)
== END 2022-06-10 13:57 | disposition home or self-care (01) ==
PROVIDERS: Visit Provider Internal Medicine Hematology & Oncology
DX: D45 Polycythemia vera (principal); C34.11 Malignant neoplasm of upper lobe, right bronchus or lung; C79.72 Secondary malignant neoplasm of left adrenal gland
CPT/HCPCS: 36415; 80053; 82728; 83540; 83550; 83735; 84439; 84443; 85025

== ENCOUNTER 2022-07-10 04:34 | Outpatient (CLI) | payer OTHER, SELFPAY ==
[2022-07-10 09:32] LABS: Abs Immature Grans 0.16 10^3/uL (0.0-0.06); Absolute Monocyte Count 1.64 10^3/uL (0.1-0.8); Basophils % 1.1; Eosinophils % 1.3; HCT 41.1 % (40.0-50.0); HGB 13.8 g/dL (13.5-17.5); Lymphocytes % 12.7; MCH 28.8 pg (27.0-33.0); MCHC 33.6 % (32.0-36.0); MCV 86 fL (80-95); MPV 9.2 fL (8.0-11.0); Monocytes % 10.4; Neutrophils % 73.5; Platelet Count 188 10^3/uL (130-400); RDW 16.3 % (11.8-14.1); RDW-SD 50.4 fL; WBC 15.73 10^3/uL (4.4-10.8)
[2022-07-10 09:37] LABS: Absolute Basophil Count 0.17 10^3/uL (0.0-0.2); Absolute Neutrophil Count 11.56 10^3/uL (1.2-6.7)
[2022-07-10 09:58] LABS: Diff Comment Agrees w/ Instrument; RBC Morphology Normal
[2022-07-10 10:07] LABS: Iron 70 ug/dL (65-175); Total Iron Binding Capacity 276 ug/dL (250-450); Transferrin Sat 25 % (20-55)
[2022-07-10 10:41] LABS: ALT 21 U/L (16-63); AST 34 U/L (15-37); Alkaline Phosphatase 177 U/L (46-116); Anion Gap 9.5 mmol/L (3-11); BUN 10 mg/dL (7-18); Bilirubin, Total 0.5 mg/dL (0.2-1.0); CO2 25.5 mmol/L (21.0-32.0); CREATININE 0.9 mg/dL (0.70-1.30); Calcium 8.6 mg/dL (8.5-10.1); Chloride 105 mmol/L (98-107); Estimated GFR 98.38 (mL/min/1.73m2); FREE T4 1.13 ng/dL (0.76-1.46); Glucose 131 mg/dL (74-106); Potassium 3.8 mmol/L (3.5-5.1); Sodium 140 mmol/L (136-145); TSH 0.36 uIU/mL (0.36-3.74); Total Protein 7.8 g/dL (6.4-8.2)
[2022-07-10 11:32] LABS: Ferritin 294 ng/mL (26-388)
== END 2022-07-10 04:35 | disposition home or self-care (01) ==
PROVIDERS: Visit Provider Internal Medicine Hematology & Oncology
DX: D45 Polycythemia vera (principal); C34.11 Malignant neoplasm of upper lobe, right bronchus or lung; C79.72 Secondary malignant neoplasm of left adrenal gland; Z79.899 Other long term (current) drug therapy
CPT/HCPCS: 36415; 80053; 82728; 83540; 83550; 83735; 83883; 84439; 84443; 85025

== ENCOUNTER 2022-08-05 14:31 | Outpatient (REF) | payer OTHER, SELFPAY ==
[2022-08-05 16:08] LABS: ALT 21 U/L (16-63); AST 30 U/L (15-37); Albumin 2.8 g/dL (3.4-5.0); Alkaline Phosphatase 144 U/L (46-116); BUN 18 mg/dL (7-18); Bilirubin, Total 0.3 mg/dL (0.2-1.0); CREATININE 0.8 mg/dL (0.70-1.30); Chloride 101 mmol/L (98-107); Estimated GFR 101.95 (mL/min/1.73m2); FREE T4 1.08 ng/dL (0.76-1.46); Glucose 119 mg/dL (74-106); Magnesium 1.9 mg/dL (1.8-2.4); Potassium 3.8 mmol/L (3.5-5.1); Sodium 137 mmol/L (136-145); TSH 0.81 uIU/mL (0.36-3.74); Total Protein 7.9 g/dL (6.4-8.2)
== END 2022-08-05 14:32 | disposition home or self-care (01) ==
LOC: LBN 14:31
PROVIDERS: Visit Provider Internal Medicine Medical Oncology
DX: C34.11 Malignant neoplasm of upper lobe, right bronchus or lung (principal); C79.72 Secondary malignant neoplasm of left adrenal gland
CPT/HCPCS: 80053; 83735; 84439; 84443

== ENCOUNTER 2022-09-02 08:23 | Outpatient (CLI) | payer OTHER, SELFPAY ==
[2022-09-02 08:34] LABS: Abs Immature Grans 0.14 10^3/uL (0.0-0.06); Absolute Basophil Count 0.12 10^3/uL (0.0-0.2); Absolute Eosinophil Count 0.13 10^3/uL (0.0-0.7); Absolute Lymphocyte Count 1.65 10^3/uL (1.2-3.4); Absolute Monocyte Count 1.16 10^3/uL (0.1-0.8); Absolute Neutrophil Count 7.11 10^3/uL (1.2-6.7); Basophils % 1.2; Eosinophils % 1.3; HCT 38.7 % (40.0-50.0); HGB 12.4 g/dL (13.5-17.5); Immature Grans % 1.4; MCH 28.8 pg (27.0-33.0); MCV 90 fL (80-95); MPV 8.5 fL (8.0-11.0); Monocytes % 11.3; Neutrophils % 68.8; Platelet Count 400 10^3/uL (130-400); RBC 4.31 10^6/uL (4.36-5.78); RDW 17.3 % (11.8-14.1); RDW-SD 57.3 fL; WBC 10.31 10^3/uL (4.4-10.8)
[2022-09-02 08:57] LABS: ALT 11 U/L (16-63); AST 23 U/L (15-37); Albumin 2.7 g/dL (3.4-5.0); Alkaline Phosphatase 146 U/L (46-116); BUN 9 mg/dL (7-18); Bilirubin, Total 0.3 mg/dL (0.2-1.0); CREATININE 0.8 mg/dL (0.70-1.30); Calcium 8.6 mg/dL (8.5-10.1); Chloride 105 mmol/L (98-107); Estimated GFR 101.95 (mL/min/1.73m2); FREE T4 0.84 ng/dL (0.76-1.46); Glucose 171 mg/dL (74-106); Magnesium 1.8 mg/dL (1.8-2.4); Potassium 3.7 mmol/L (3.5-5.1); Sodium 142 mmol/L (136-145); TSH 0.68 uIU/mL (0.36-3.74); Total Protein 6.8 g/dL (6.4-8.2)
== END 2022-09-02 08:24 | disposition home or self-care (01) ==
LOC: LBO 08:23
PROVIDERS: Visit Provider Internal Medicine Medical Oncology
DX: C34.11 Malignant neoplasm of upper lobe, right bronchus or lung (principal); C79.72 Secondary malignant neoplasm of left adrenal gland
CPT/HCPCS: 36415; 80053; 83735; 84439; 84443; 85025

== ENCOUNTER 2022-09-23 03:49 | Outpatient (CLI) | payer OTHER, SELFPAY ==
[2022-09-23 09:52] LABS: Abs Immature Grans 0.08 10^3/uL (0.0-0.06); Absolute Basophil Count 0.14 10^3/uL (0.0-0.2); Absolute Eosinophil Count 0.09 10^3/uL (0.0-0.7); Absolute Monocyte Count 1.26 10^3/uL (0.1-0.8); Absolute Neutrophil Count 9.77 10^3/uL (1.2-6.7); Basophils % 1.1; Eosinophils % 0.7; HCT 40.5 % (40.0-50.0); HGB 13.2 g/dL (13.5-17.5); Immature Grans % 0.6; MCH 29.5 pg (27.0-33.0); MCHC 32.6 % (32.0-36.0); MCV 91 fL (80-95); Monocytes % 9.7; Neutrophils % 74.9; Platelet Count 390 10^3/uL (130-400); RBC 4.47 10^6/uL (4.36-5.78); RDW 16.2 % (11.8-14.1); WBC 13.04 10^3/uL (4.4-10.8)
[2022-09-23 10:40] LABS: ALT 15 U/L (16-63); AST 18 U/L (15-37); Albumin 3.1 g/dL (3.4-5.0); Alkaline Phosphatase 140 U/L (46-116); BUN 9 mg/dL (7-18); Bilirubin, Total 0.4 mg/dL (0.2-1.0); CREATININE 0.9 mg/dL (0.70-1.30); Calcium 9.4 mg/dL (8.5-10.1); Chloride 104 mmol/L (98-107); Estimated GFR 98.38 (mL/min/1.73m2); FREE T4 0.94 ng/dL (0.76-1.46); Glucose 142 mg/dL (74-106); Magnesium 1.9 mg/dL (1.8-2.4); Potassium 4.2 mmol/L (3.5-5.1); Sodium 140 mmol/L (136-145); TSH 0.87 uIU/mL (0.36-3.74)
== END 2022-09-23 03:50 | disposition home or self-care (01) ==
LOC: LBO 03:49
PROVIDERS: Visit Provider Internal Medicine Medical Oncology
DX: C34.11 Malignant neoplasm of upper lobe, right bronchus or lung (principal); C79.72 Secondary malignant neoplasm of left adrenal gland; J44.9 Chronic obstructive pulmonary disease, unspecified; Z72.0 Tobacco use
CPT/HCPCS: 36415; 80053; 83735; 84439; 84443; 85025

== ENCOUNTER 2022-10-16 04:00 | Outpatient (CLI) | payer OTHER, SELFPAY ==
[2022-10-16 08:42] LABS: Abs Immature Grans 0.08 10^3/uL (0.0-0.06); Absolute Lymphocyte Count 1.73 10^3/uL (1.2-3.4); Absolute Monocyte Count 1.48 10^3/uL (0.1-0.8); Absolute Neutrophil Count 10.54 10^3/uL (1.2-6.7); Basophils % 1.1; Eosinophils % 1.5; HCT 40.8 % (40.0-50.0); HGB 13.5 g/dL (13.5-17.5); Immature Grans % 0.6; Lymphocytes % 12.2; MCH 29.2 pg (27.0-33.0); MCHC 33.1 % (32.0-36.0); MCV 88 fL (80-95); MPV 8.9 fL (8.0-11.0); Monocytes % 10.4; Neutrophils % 74.2; Platelet Count 429 10^3/uL (130-400); RBC 4.62 10^6/uL (4.36-5.78); RDW 15.5 % (11.8-14.1); RDW-SD 50.4 fL
[2022-10-16 08:43] LABS: Absolute Basophil Count 0.16 10^3/uL (0.0-0.2); Absolute Eosinophil Count 0.21 10^3/uL (0.0-0.7)
[2022-10-16 09:06] LABS: ALT 20 U/L (16-63); AST 17 U/L (15-37); Alkaline Phosphatase 132 U/L (46-116); Anion Gap 7.8 mmol/L (3-11); BUN 11 mg/dL (7-18); Bilirubin, Total 0.3 mg/dL (0.2-1.0); CO2 29.2 mmol/L (21.0-32.0); CREATININE 0.9 mg/dL (0.70-1.30); Calcium 9.1 mg/dL (8.5-10.1); Chloride 100 mmol/L (98-107); Estimated GFR 98.38 (mL/min/1.73m2); FREE T4 0.94 ng/dL (0.76-1.46); Glucose 179 mg/dL (74-106); Potassium 4.4 mmol/L (3.5-5.1); Sodium 137 mmol/L (136-145); TSH 0.55 uIU/mL (0.36-3.74); Total Protein 7.3 g/dL (6.4-8.2)
== END 2022-10-16 04:01 | disposition home or self-care (01) ==
LOC: LBO 04:00
PROVIDERS: Visit Provider Internal Medicine Medical Oncology
DX: C34.11 Malignant neoplasm of upper lobe, right bronchus or lung (principal); C79.72 Secondary malignant neoplasm of left adrenal gland; Z79.899 Other long term (current) drug therapy
CPT/HCPCS: 36415; 80053; 83735; 84439; 84443; 85025

== ENCOUNTER 2022-11-04 02:15 | Outpatient (CLI) | payer OTHER, SELFPAY ==
[2022-11-04 09:33] LABS: Abs Immature Grans 0.11 10^3/uL (0.0-0.06); Absolute Basophil Count 0.14 10^3/uL (0.0-0.2); Absolute Eosinophil Count 0.09 10^3/uL (0.0-0.7); Absolute Lymphocyte Count 1.61 10^3/uL (1.2-3.4); Absolute Monocyte Count 1.35 10^3/uL (0.1-0.8); Absolute Neutrophil Count 9.82 10^3/uL (1.2-6.7); Basophils % 1.1; Eosinophils % 0.7; HCT 41.7 % (40.0-50.0); HGB 13.4 g/dL (13.5-17.5); Immature Grans % 0.8; Lymphocytes % 12.3; MCH 27.9 pg (27.0-33.0); MCHC 32.1 % (32.0-36.0); MCV 87 fL (80-95); MPV 8.7 fL (8.0-11.0); Monocytes % 10.3; Neutrophils % 74.8; Platelet Count 418 10^3/uL (130-400); RBC 4.81 10^6/uL (4.36-5.78); RDW 15.6 % (11.8-14.1); RDW-SD 49.3 fL; WBC 13.13 10^3/uL (4.4-10.8)
[2022-11-04 09:58] LABS: ALT 14 U/L (16-63); AST 20 U/L (15-37); Alkaline Phosphatase 135 U/L (46-116); Anion Gap 8.4 mmol/L (3-11); BUN 11 mg/dL (7-18); Bilirubin, Total 0.4 mg/dL (0.2-1.0); CO2 27.6 mmol/L (21.0-32.0); CREATININE 0.8 mg/dL (0.70-1.30); Calcium 9.4 mg/dL (8.5-10.1); Chloride 103 mmol/L (98-107); Estimated GFR 101.95 (mL/min/1.73m2); FREE T4 0.95 ng/dL (0.76-1.46); Glucose 133 mg/dL (74-106); Potassium 3.5 mmol/L (3.5-5.1); Sodium 139 mmol/L (136-145); TSH 0.93 uIU/mL (0.36-3.74)
== END 2022-11-04 02:16 | disposition home or self-care (01) ==
LOC: LBO 02:15
PROVIDERS: Visit Provider Internal Medicine Medical Oncology
DX: C34.11 Malignant neoplasm of upper lobe, right bronchus or lung (principal); C79.72 Secondary malignant neoplasm of left adrenal gland
CPT/HCPCS: 36415; 80053; 83735; 84439; 84443; 85025

== ENCOUNTER 2022-11-25 04:41 | Outpatient (CLI) | payer OTHER, SELFPAY ==
[2022-11-25 09:08] LABS: Abs Immature Grans 0.12 10^3/uL (0.0-0.06); Absolute Basophil Count 0.15 10^3/uL (0.0-0.2); Absolute Eosinophil Count 0.08 10^3/uL (0.0-0.7); Absolute Lymphocyte Count 1.57 10^3/uL (1.2-3.4); Absolute Monocyte Count 1.44 10^3/uL (0.1-0.8); Absolute Neutrophil Count 10.38 10^3/uL (1.2-6.7); Basophils % 1.1; Eosinophils % 0.6; HCT 40.6 % (40.0-50.0); HGB 13.2 g/dL (13.5-17.5); Immature Grans % 0.9; Lymphocytes % 11.4; MCH 27.7 pg (27.0-33.0); MCHC 32.5 % (32.0-36.0); MCV 85 fL (80-95); MPV 8.9 fL (8.0-11.0); Monocytes % 10.5; Neutrophils % 75.5; Platelet Count 403 10^3/uL (130-400); RBC 4.77 10^6/uL (4.36-5.78); RDW 15.9 % (11.8-14.1); RDW-SD 49.6 fL; WBC 13.75 10^3/uL (4.4-10.8)
[2022-11-25 09:33] LABS: ALT 11 U/L (16-63); AST 22 U/L (15-37); Alkaline Phosphatase 137 U/L (46-116); Anion Gap 5.3 mmol/L (3-11); BUN 11 mg/dL (7-18); Bilirubin, Total 0.4 mg/dL (0.2-1.0); CO2 28.7 mmol/L (21.0-32.0); CREATININE 0.8 mg/dL (0.70-1.30); Calcium 9.2 mg/dL (8.5-10.1); Chloride 103 mmol/L (98-107); Estimated GFR 101.95 (mL/min/1.73m2); FREE T4 1.02 ng/dL (0.76-1.46); Glucose 127 mg/dL (74-106); Magnesium 1.9 mg/dL (1.8-2.4); Potassium 3.6 mmol/L (3.5-5.1); Sodium 137 mmol/L (136-145); Total Protein 6.9 g/dL (6.4-8.2)
== END 2022-11-25 04:42 | disposition home or self-care (01) ==
LOC: LBO 04:42
PROVIDERS: Visit Provider Internal Medicine Medical Oncology
DX: C34.11 Malignant neoplasm of upper lobe, right bronchus or lung (principal); C79.72 Secondary malignant neoplasm of left adrenal gland
CPT/HCPCS: 36415; 80053; 83735; 84439; 84443; 85025

== ENCOUNTER 2022-12-16 01:03 | Outpatient (CLI) | payer OTHER, SELFPAY ==
[2022-12-16 08:06] LABS: Absolute Basophil Count 0.16 10^3/uL (0.0-0.2); Absolute Monocyte Count 1.44 10^3/uL (0.1-0.8); Basophils % 1.1; Eosinophils % 0.6; HCT 41.8 % (40.0-50.0); HGB 13.4 g/dL (13.5-17.5); Immature Grans % 0.7; Lymphocytes % 9.7; MCH 27.5 pg (27.0-33.0); MCHC 32.1 % (32.0-36.0); MCV 86 fL (80-95); MPV 8.7 fL (8.0-11.0); Neutrophils % 77.9; Platelet Count 414 10^3/uL (130-400); RBC 4.88 10^6/uL (4.36-5.78); RDW 16.9 % (11.8-14.1); RDW-SD 52.6 fL
[2022-12-16 08:07] LABS: Absolute Eosinophil Count 0.09 10^3/uL (0.0-0.7); Absolute Neutrophil Count 11.22 10^3/uL (1.2-6.7)
[2022-12-16 08:38] LABS: ALT 13 U/L (16-63); AST 22 U/L (15-37); Alkaline Phosphatase 120 U/L (46-116); Anion Gap 4.8 mmol/L (3-11); BUN 10 mg/dL (7-18); Bilirubin, Total 0.4 mg/dL (0.2-1.0); CO2 30.2 mmol/L (21.0-32.0); CREATININE 0.8 mg/dL (0.70-1.30); Chloride 100 mmol/L (98-107); Estimated GFR 101.95 (mL/min/1.73m2); FREE T4 0.98 ng/dL (0.76-1.46); Glucose 166 mg/dL (74-106); Potassium 3.7 mmol/L (3.5-5.1); Sodium 135 mmol/L (136-145); TSH 0.79 uIU/mL (0.36-3.74); Total Protein 6.9 g/dL (6.4-8.2)
== END 2022-12-16 01:04 | disposition home or self-care (01) ==
PROVIDERS: Visit Provider Internal Medicine Medical Oncology
DX: C34.11 Malignant neoplasm of upper lobe, right bronchus or lung (principal); C79.72 Secondary malignant neoplasm of left adrenal gland
CPT/HCPCS: 36415; 80053; 83735; 84439; 84443; 85025

== ENCOUNTER 2022-12-16 13:41 | Outpatient (CLI) | payer OTHER, SELFPAY ==
--- NOTE | 2022-12-16 13:30 | RT.EKG_ITS ---
APPROVED REPORT Exam: Resting ECG Reason for Exam: NPW Baseline needed Patient Location: O HR:91 bpm ECG Measurements Heart Rate 91 AXIS NJ 150 P 81 QRSd 93 QRS 119 QT 343 T 72 QTc 423 Conclusion Sinus rhythm...normal P axis, V-rate 50- 99 Indeterminate axis Low voltage throughout Abnormal R-wave progression, late transition...QRS area<0 in V5/V6
== END 2022-12-16 13:42 | disposition home or self-care (01) ==
LOC: DI.CARD 13:42
PROVIDERS: PCP Neuromusculoskeletal Medicine & OMM; Visit Provider Internal Medicine Cardiovascular Disease
DX: I10 Essential (primary) hypertension (principal); I21.4 Non-ST elevation (NSTEMI) myocardial infarction; I26.99 Other pulmonary embolism without acute cor pulmonale; J44.9 Chronic obstructive pulmonary disease, unspecified
CPT/HCPCS: 93010

== ENCOUNTER 2023-01-06 03:27 | Outpatient (CLI) | payer OTHER, SELFPAY ==
[2023-01-06 09:49] LABS: Abs Immature Grans 0.08 10^3/uL (0.0-0.06); Absolute Eosinophil Count 0.12 10^3/uL (0.0-0.7); Absolute Lymphocyte Count 1.43 10^3/uL (1.2-3.4); Absolute Neutrophil Count 11.66 10^3/uL (1.2-6.7); Basophils % 1.2; Eosinophils % 0.8; HCT 41.6 % (40.0-50.0); HGB 13.5 g/dL (13.5-17.5); Immature Grans % 0.5; Lymphocytes % 9.2; MCH 27.7 pg (27.0-33.0); MCHC 32.5 % (32.0-36.0); MCV 85 fL (80-95); MPV 8.9 fL (8.0-11.0); Neutrophils % 75.3; Platelet Count 387 10^3/uL (130-400); RBC 4.88 10^6/uL (4.36-5.78); RDW 16.5 % (11.8-14.1); RDW-SD 51.1 fL; WBC 15.49 10^3/uL (4.4-10.8)
[2023-01-06 09:53] LABS: Absolute Basophil Count 0.19 10^3/uL (0.0-0.2); Absolute Monocyte Count 2.01 10^3/uL (0.1-0.8)
[2023-01-06 10:01] LABS: Diff Comment Diff Reviewed; RBC Morphology Normal
[2023-01-06 10:20] LABS: ALT 12 U/L (16-63); AST 23 U/L (15-37); Albumin 2.9 g/dL (3.4-5.0); Alkaline Phosphatase 139 U/L (46-116); Anion Gap 7.1 mmol/L (3-11); BUN 12 mg/dL (7-18); Bilirubin, Total 0.5 mg/dL (0.2-1.0); CO2 29.9 mmol/L (21.0-32.0); CREATININE 0.8 mg/dL (0.70-1.30); Calcium 9.1 mg/dL (8.5-10.1); Chloride 103 mmol/L (98-107); Estimated GFR 101.95 (mL/min/1.73m2); FREE T4 0.97 ng/dL (0.76-1.46); Glucose 104 mg/dL (74-106); Magnesium 1.9 mg/dL (1.8-2.4); Potassium 3.6 mmol/L (3.5-5.1); Sodium 140 mmol/L (136-145); TSH 1.11 uIU/mL (0.36-3.74)
== END 2023-01-06 03:28 | disposition home or self-care (01) ==
LOC: LBO 03:28
PROVIDERS: Visit Provider Internal Medicine Medical Oncology
DX: C34.11 Malignant neoplasm of upper lobe, right bronchus or lung (principal); C79.72 Secondary malignant neoplasm of left adrenal gland
CPT/HCPCS: 36415; 80053; 83735; 84439; 84443; 85025

== ENCOUNTER 2023-01-13 03:59 | Outpatient (CLI) | payer OTHER, SELFPAY ==
[2023-01-13 07:40] LABS: Abs Immature Grans 0.08 10^3/uL (0.0-0.06); Absolute Eosinophil Count 0.26 10^3/uL (0.0-0.7); Absolute Neutrophil Count 7.03 10^3/uL (1.2-6.7); Eosinophils % 2.6; HCT 38.1 % (40.0-50.0); HGB 12.4 g/dL (13.5-17.5); Immature Grans % 0.8; Lymphocytes % 11.1; MCH 27.4 pg (27.0-33.0); MCHC 32.5 % (32.0-36.0); MCV 84 fL (80-95); MPV 8.7 fL (8.0-11.0); Monocytes % 13.2; Neutrophils % 71.3; Platelet Count 167 10^3/uL (130-400); RBC 4.53 10^6/uL (4.36-5.78); RDW 16.3 % (11.8-14.1); RDW-SD 49.3 fL; WBC 9.87 10^3/uL (4.4-10.8)
[2023-01-13 08:12] LABS: ALT 14 U/L (16-63); AST 20 U/L (15-37); Albumin 2.6 g/dL (3.4-5.0); Alkaline Phosphatase 125 U/L (46-116); Anion Gap 6.4 mmol/L (3-11); BUN 9 mg/dL (7-18); Bilirubin, Total 0.5 mg/dL (0.2-1.0); CO2 30.6 mmol/L (21.0-32.0); CREATININE 0.9 mg/dL (0.70-1.30); Calcium 8.7 mg/dL (8.5-10.1); Chloride 102 mmol/L (98-107); Estimated GFR 98.38 (mL/min/1.73m2); FREE T4 1.15 ng/dL (0.76-1.46); Glucose 103 mg/dL (74-106); Potassium 3.9 mmol/L (3.5-5.1); Sodium 139 mmol/L (136-145); TSH 0.68 uIU/mL (0.36-3.74); Total Protein 6.9 g/dL (6.4-8.2)
== END 2023-01-13 04:00 | disposition home or self-care (01) ==
LOC: LBO 03:59
PROVIDERS: Visit Provider Internal Medicine Medical Oncology
DX: C34.11 Malignant neoplasm of upper lobe, right bronchus or lung (principal); C79.72 Secondary malignant neoplasm of left adrenal gland
CPT/HCPCS: 36415; 80053; 83735; 84439; 84443; 85025

== ENCOUNTER 2023-01-29 04:36 | Outpatient (CLI) | payer OTHER, SELFPAY ==
[2023-01-29 07:41] LABS: HGB 13.2 g/dL (13.5-17.5); MCH 27.7 pg (27.0-33.0); MCHC 32.2 % (32.0-36.0); MCV 86 fL (80-95); MPV 8.3 fL (8.0-11.0); RBC 4.77 10^6/uL (4.36-5.78); RDW 18.1 % (11.8-14.1); RDW-SD 55.3 fL; WBC 12.81 10^3/uL (4.4-10.8)
[2023-01-29 08:06] LABS: ALT 16 U/L (16-63); AST 22 U/L (15-37); Albumin 2.9 g/dL (3.4-5.0); Alkaline Phosphatase 142 U/L (46-116); Anion Gap 6.2 mmol/L (3-11); BUN 9 mg/dL (7-18); Bilirubin, Total 0.5 mg/dL (0.2-1.0); CO2 29.8 mmol/L (21.0-32.0); CREATININE 0.9 mg/dL (0.70-1.30); Chloride 100 mmol/L (98-107); Estimated GFR 98.38 (mL/min/1.73m2); FREE T4 1.09 ng/dL (0.76-1.46); Glucose 106 mg/dL (74-106); Potassium 4.4 mmol/L (3.5-5.1); Sodium 136 mmol/L (136-145); TSH 0.61 uIU/mL (0.36-3.74); Total Protein 7.3 g/dL (6.4-8.2)
[2023-01-29 08:18] LABS: Platelet Count 674 10^3/uL (130-400)
[2023-01-29 08:19] LABS: Absolute Lymphocyte Count 1.54 10^3/uL (1.2-3.4); Absolute Monocyte Count 1.15 10^3/uL (0.1-0.8); Absolute Neutrophil Count 10.12 10^3/uL (1.2-6.7); Atypical Lymphocytes % 8; Bands % 0; Diff Comment Manual Differential
[2023-01-29 08:20] LABS: RBC Morphology Normal
== END 2023-01-29 04:37 | disposition home or self-care (01) ==
LOC: LBO 04:36
PROVIDERS: Visit Provider Internal Medicine Medical Oncology
DX: C34.11 Malignant neoplasm of upper lobe, right bronchus or lung (principal); C79.72 Secondary malignant neoplasm of left adrenal gland
CPT/HCPCS: 36415; 80053; 83735; 84439; 84443; 85025

== ENCOUNTER 2023-02-05 01:22 | Outpatient (CLI) | payer OTHER, SELFPAY ==
[2023-02-05 07:56] LABS: Absolute Eosinophil Count 0.15 10^3/uL (0.0-0.7); HCT 41.4 % (40.0-50.0); HGB 13.4 g/dL (13.5-17.5); MCH 27.6 pg (27.0-33.0); MCHC 32.4 % (32.0-36.0); MCV 85 fL (80-95); MPV 8.7 fL (8.0-11.0); Platelet Count 356 10^3/uL (130-400); RBC 4.85 10^6/uL (4.36-5.78); RDW 18.2 % (11.8-14.1); RDW-SD 54.8 fL; WBC 15.49 10^3/uL (4.4-10.8)
[2023-02-05 08:09] LABS: Absolute Lymphocyte Count 2.17 10^3/uL (1.2-3.4); Absolute Monocyte Count 0.46 10^3/uL (0.1-0.8); Atypical Lymphocytes % 4; Diff Comment Manual Differential; RBC Morphology Normal
[2023-02-05 08:24] LABS: ALT 24 U/L (16-63); AST 21 U/L (15-37); Albumin 2.7 g/dL (3.4-5.0); Alkaline Phosphatase 132 U/L (46-116); Anion Gap 6.6 mmol/L (3-11); BUN 14 mg/dL (7-18); Bilirubin, Total 0.3 mg/dL (0.2-1.0); CO2 31.4 mmol/L (21.0-32.0); CREATININE 0.9 mg/dL (0.70-1.30); Calcium 9.3 mg/dL (8.5-10.1); Chloride 101 mmol/L (98-107); Estimated GFR 98.38 (mL/min/1.73m2); FREE T4 1.11 ng/dL (0.76-1.46); Glucose 184 mg/dL (74-106); Magnesium 1.8 mg/dL (1.8-2.4); Potassium 3.6 mmol/L (3.5-5.1); Sodium 139 mmol/L (136-145); TSH 0.94 uIU/mL (0.36-3.74); Total Protein 6.8 g/dL (6.4-8.2)
== END 2023-02-05 01:23 | disposition home or self-care (01) ==
LOC: LBO 01:22
PROVIDERS: Visit Provider Internal Medicine Medical Oncology
DX: C34.11 Malignant neoplasm of upper lobe, right bronchus or lung (principal); C79.72 Secondary malignant neoplasm of left adrenal gland; Z79.899 Other long term (current) drug therapy
CPT/HCPCS: 80053; 83735; 84439; 84443; 85025

== ENCOUNTER 2023-02-17 04:16 | Outpatient (CLI) | payer OTHER, SELFPAY ==
[2023-02-17 07:47] LABS: Abs Immature Grans 0.13 10^3/uL (0.0-0.06); Absolute Basophil Count 0.12 10^3/uL (0.0-0.2); Absolute Lymphocyte Count 0.92 10^3/uL (1.2-3.4); Absolute Monocyte Count 2.53 10^3/uL (0.1-0.8); Absolute Neutrophil Count 12.31 10^3/uL (1.2-6.7); Basophils % 0.7; Eosinophils % 2.6; HCT 39.2 % (40.0-50.0); HGB 12.7 g/dL (13.5-17.5); Immature Grans % 0.8; Lymphocytes % 5.6; MCH 27.9 pg (27.0-33.0); MCHC 32.4 % (32.0-36.0); MCV 86 fL (80-95); MPV 9.2 fL (8.0-11.0); Monocytes % 15.4; Neutrophils % 74.9; Platelet Count 281 10^3/uL (130-400); RBC 4.56 10^6/uL (4.36-5.78); RDW 19.1 % (11.8-14.1); RDW-SD 58.9 fL; WBC 16.43 10^3/uL (4.4-10.8)
[2023-02-17 07:51] LABS: Absolute Eosinophil Count 0.43 10^3/uL (0.0-0.7)
[2023-02-17 07:59] LABS: Diff Comment Diff Reviewed; RBC Morphology Normal
[2023-02-17 08:28] LABS: ALT 12 U/L (16-63); AST 19 U/L (15-37); Albumin 2.7 g/dL (3.4-5.0); Alkaline Phosphatase 129 U/L (46-116); Anion Gap 10.7 mmol/L (3-11); BUN 14 mg/dL (7-18); Bilirubin, Total 0.7 mg/dL (0.2-1.0); CO2 26.3 mmol/L (21.0-32.0); CREATININE 0.9 mg/dL (0.70-1.30); Calcium 9.2 mg/dL (8.5-10.1); Chloride 99 mmol/L (98-107); Estimated GFR 98.38 (mL/min/1.73m2); FREE T4 1.24 ng/dL (0.76-1.46); Glucose 88 mg/dL (74-106); Magnesium 2.2 mg/dL (1.8-2.4); Sodium 136 mmol/L (136-145); TSH 1.18 uIU/mL (0.36-3.74); Total Protein 7.2 g/dL (6.4-8.2)
== END 2023-02-17 04:17 | disposition home or self-care (01) ==
LOC: LBO 04:16
PROVIDERS: Visit Provider Internal Medicine Medical Oncology
DX: C34.11 Malignant neoplasm of upper lobe, right bronchus or lung (principal); C79.72 Secondary malignant neoplasm of left adrenal gland
CPT/HCPCS: 36415; 80053; 83735; 84439; 84443; 85025

== ENCOUNTER 2023-02-26 02:51 | Outpatient (CLI) | payer OTHER, SELFPAY ==
[2023-02-26 08:11] LABS: HCT 42.5 % (40.0-50.0); HGB 13.7 g/dL (13.5-17.5); MCH 28.1 pg (27.0-33.0); MCHC 32.2 % (32.0-36.0); MCV 87 fL (80-95); MPV 8.3 fL (8.0-11.0); Nucleated RBC 0.2 % (0.0-0.3); RBC 4.87 10^6/uL (4.36-5.78); RDW 20.3 % (11.8-14.1); RDW-SD 62.8 fL; WBC 24.57 10^3/uL (4.4-10.8)
[2023-02-26 08:32] LABS: Absolute Eosinophil Count 0.25 10^3/uL (0.0-0.7); Absolute Lymphocyte Count 2.46 10^3/uL (1.2-3.4); Absolute Monocyte Count 2.21 10^3/uL (0.1-0.8); Absolute Neutrophil Count 19.41 10^3/uL (1.2-6.7); Anisocytosis 2+; Atypical Lymphocytes % 1; Bands % 3; Diff Comment Manual Differential; Metamyelocytes % 1
[2023-02-26 08:33] LABS: Platelet Count 752 10^3/uL (130-400); Poikilocytes 1+; Polychromasia Present
[2023-02-26 08:40] LABS: ALT 18 U/L (16-63); AST 20 U/L (15-37); Albumin 3.1 g/dL (3.4-5.0); Alkaline Phosphatase 134 U/L (46-116); BUN 16 mg/dL (7-18); Bilirubin, Total 0.3 mg/dL (0.2-1.0); CREATININE 0.9 mg/dL (0.70-1.30); Calcium 9.7 mg/dL (8.5-10.1); Chloride 99 mmol/L (98-107); Estimated GFR 98.38 (mL/min/1.73m2); FREE T4 1.03 ng/dL (0.76-1.46); Glucose 106 mg/dL (74-106); Magnesium 2.1 mg/dL (1.8-2.4); Sodium 139 mmol/L (136-145); Total Protein 7.4 g/dL (6.4-8.2)
== END 2023-02-26 02:52 | disposition home or self-care (01) ==
LOC: LBO 02:52
PROVIDERS: Visit Provider Internal Medicine Medical Oncology
DX: C34.11 Malignant neoplasm of upper lobe, right bronchus or lung (principal); C79.72 Secondary malignant neoplasm of left adrenal gland
CPT/HCPCS: 36415; 80053; 83735; 84439; 84443; 85025

== ENCOUNTER 2023-03-05 02:47 | Outpatient (CLI) | payer OTHER, SELFPAY ==
[2023-03-05 09:01] LABS: Abs Immature Grans 0.59 10^3/uL (0.0-0.06); Absolute Basophil Count 0.07 10^3/uL (0.0-0.2); Absolute Eosinophil Count 0.09 10^3/uL (0.0-0.7); Absolute Lymphocyte Count 0.77 10^3/uL (1.2-3.4); Absolute Monocyte Count 1.25 10^3/uL (0.1-0.8); Basophils % 0.4; Eosinophils % 0.5; HCT 38.9 % (40.0-50.0); HGB 12.5 g/dL (13.5-17.5); Immature Grans % 3.2; Lymphocytes % 4.2; MCH 28.1 pg (27.0-33.0); MCHC 32.1 % (32.0-36.0); MCV 87 fL (80-95); MPV 8.6 fL (8.0-11.0); Monocytes % 6.8; Neutrophils % 84.9; Platelet Count 256 10^3/uL (130-400); RBC 4.45 10^6/uL (4.36-5.78); RDW 20.7 % (11.8-14.1); RDW-SD 63.6 fL; WBC 18.43 10^3/uL (4.4-10.8)
[2023-03-05 09:06] LABS: Absolute Neutrophil Count 15.65 10^3/uL (1.2-6.7)
[2023-03-05 09:18] LABS: Anisocytosis 2+; Diff Comment Diff Reviewed
[2023-03-05 09:25] LABS: ALT 20 U/L (16-63); AST 20 U/L (15-37); Albumin 2.7 g/dL (3.4-5.0); Alkaline Phosphatase 109 U/L (46-116); Anion Gap 9.2 mmol/L (3-11); BUN 18 mg/dL (7-18); Bilirubin, Total 0.3 mg/dL (0.2-1.0); CO2 27.8 mmol/L (21.0-32.0); CREATININE 0.8 mg/dL (0.70-1.30); Calcium 8.9 mg/dL (8.5-10.1); Chloride 102 mmol/L (98-107); Estimated GFR 101.95 (mL/min/1.73m2); FREE T4 0.87 ng/dL (0.76-1.46); Glucose 172 mg/dL (74-106); Magnesium 1.8 mg/dL (1.8-2.4); Potassium 3.9 mmol/L (3.5-5.1); Sodium 139 mmol/L (136-145); TSH 0.56 uIU/mL (0.36-3.74); Total Protein 6.6 g/dL (6.4-8.2)
== END 2023-03-05 02:48 | disposition home or self-care (01) ==
LOC: LBO 02:48
PROVIDERS: Visit Provider Internal Medicine Medical Oncology
DX: C34.11 Malignant neoplasm of upper lobe, right bronchus or lung (principal); C79.72 Secondary malignant neoplasm of left adrenal gland
CPT/HCPCS: 36415; 80053; 83615; 83735; 84439; 84443; 85025

== ENCOUNTER 2023-03-24 03:40 | Outpatient (CLI) | payer OTHER, SELFPAY ==
[2023-03-24 07:56] LABS: Abs Immature Grans 0.79 10^3/uL (0.0-0.06); Absolute Eosinophil Count 0.13 10^3/uL (0.0-0.7); Absolute Lymphocyte Count 1.02 10^3/uL (1.2-3.4); Basophils % 0.6; Eosinophils % 0.7; HCT 40.7 % (40.0-50.0); HGB 13.2 g/dL (13.5-17.5); Immature Grans % 4.1; Lymphocytes % 5.3; MCH 29.3 pg (27.0-33.0); MCHC 32.4 % (32.0-36.0); MCV 90 fL (80-95); MPV 8.3 fL (8.0-11.0); Monocytes % 12.3; Platelet Count 333 10^3/uL (130-400); RDW 22.9 % (11.8-14.1); RDW-SD 73.3 fL; WBC 19.23 10^3/uL (4.4-10.8)
[2023-03-24 08:03] LABS: Absolute Basophil Count 0.12 10^3/uL (0.0-0.2); Absolute Monocyte Count 2.37 10^3/uL (0.1-0.8); Absolute Neutrophil Count 14.81 10^3/uL (1.2-6.7)
[2023-03-24 08:25] LABS: ALT 19 U/L (16-63); AST 39 U/L (15-37); Albumin 2.6 g/dL (3.4-5.0); Alkaline Phosphatase 115 U/L (46-116); Anion Gap 8.4 mmol/L (3-11); BUN 18 mg/dL (7-18); Bilirubin, Total 0.7 mg/dL (0.2-1.0); CO2 26.6 mmol/L (21.0-32.0); CREATININE 0.7 mg/dL (0.70-1.30); Calcium 8.6 mg/dL (8.5-10.1); Chloride 101 mmol/L (98-107); Estimated GFR 106.14 (mL/min/1.73m2); FREE T4 0.99 ng/dL (0.76-1.46); Glucose 130 mg/dL (74-106); Magnesium 1.9 mg/dL (1.8-2.4); Potassium 3.8 mmol/L (3.5-5.1); Sodium 136 mmol/L (136-145); TSH 0.64 uIU/mL (0.36-3.74); Total Protein 6.6 g/dL (6.4-8.2)
[2023-03-24 08:40] LABS: Diff Comment Diff Reviewed
[2023-03-24 08:41] LABS: Anisocytosis 2+; Macrocytosis 1+; Polychromasia Present
== END 2023-03-24 03:41 | disposition home or self-care (01) ==
LOC: LBO 03:41
PROVIDERS: Visit Provider Internal Medicine Medical Oncology
DX: C34.11 Malignant neoplasm of upper lobe, right bronchus or lung (principal); C79.72 Secondary malignant neoplasm of left adrenal gland
CPT/HCPCS: 36415; 80053; 83735; 84439; 84443; 85025

== ENCOUNTER 2023-03-31 05:05 | Outpatient (CLI) | payer OTHER, SELFPAY ==
[2023-03-31 07:48] LABS: Abs Immature Grans 0.65 10^3/uL (0.0-0.06); HCT 40.7 % (40.0-50.0); HGB 13.2 g/dL (13.5-17.5); MCH 29.6 pg (27.0-33.0); MCHC 32.4 % (32.0-36.0); MCV 91 fL (80-95); MPV 9.5 fL (8.0-11.0); Platelet Count 201 10^3/uL (130-400); RBC 4.46 10^6/uL (4.36-5.78); RDW 21.7 % (11.8-14.1); RDW-SD 70.8 fL; WBC 15.73 10^3/uL (4.4-10.8)
[2023-03-31 08:07] LABS: Absolute Lymphocyte Count 2.36 10^3/uL (1.2-3.4); Absolute Monocyte Count 0.79 10^3/uL (0.1-0.8); Absolute Neutrophil Count 12.43 10^3/uL (1.2-6.7); Atypical Lymphocytes % 1; Bands % 0; Myelocytes % 1
[2023-03-31 08:08] LABS: Anisocytosis 1+; Diff Comment Manual Differential; Polychromasia Present
[2023-03-31 08:13] LABS: ALT 25 U/L (16-63); AST 19 U/L (15-37); Albumin 2.5 g/dL (3.4-5.0); Alkaline Phosphatase 150 U/L (46-116); Anion Gap 7.2 mmol/L (3-11); BUN 18 mg/dL (7-18); Bilirubin, Total 0.3 mg/dL (0.2-1.0); CO2 29.8 mmol/L (21.0-32.0); CREATININE 0.8 mg/dL (0.70-1.30); Calcium 8.9 mg/dL (8.5-10.1); Chloride 103 mmol/L (98-107); Estimated GFR 101.95 (mL/min/1.73m2); FREE T4 1.05 ng/dL (0.76-1.46); Glucose 112 mg/dL (74-106); Magnesium 1.9 mg/dL (1.8-2.4); Potassium 3.7 mmol/L (3.5-5.1); Sodium 140 mmol/L (136-145); TSH 1.31 uIU/mL (0.36-3.74); Total Protein 6.8 g/dL (6.4-8.2)
== END 2023-03-31 05:06 | disposition home or self-care (01) ==
LOC: LBO 05:05
PROVIDERS: Visit Provider Internal Medicine Medical Oncology
DX: C34.11 Malignant neoplasm of upper lobe, right bronchus or lung (principal); C79.72 Secondary malignant neoplasm of left adrenal gland
CPT/HCPCS: 36415; 80053; 83735; 84439; 84443; 85025

== ENCOUNTER 2023-05-05 05:08 | Outpatient (CLI) | payer OTHER, SELFPAY ==
[2023-05-05 08:07] LABS: Abs Immature Grans 0.55 10^3/uL (0.0-0.06); Absolute Eosinophil Count 0.35 10^3/uL (0.0-0.7); Absolute Monocyte Count 2.23 10^3/uL (0.1-0.8); Basophils % 0.4; Eosinophils % 1.3; HCT 43.4 % (40.0-50.0); HGB 13.7 g/dL (13.5-17.5); Immature Grans % 2.1; Lymphocytes % 7.6; MCH 29.6 pg (27.0-33.0); MCHC 31.6 % (32.0-36.0); MCV 94 fL (80-95); MPV 8.9 fL (8.0-11.0); Monocytes % 8.4; Neutrophils % 80.2; Platelet Count 334 10^3/uL (130-400); RBC 4.63 10^6/uL (4.36-5.78); RDW 18.5 % (11.8-14.1); RDW-SD 64.1 fL
[2023-05-05 08:10] LABS: Absolute Basophil Count 0.11 10^3/uL (0.0-0.2); Absolute Lymphocyte Count 2.02 10^3/uL (1.2-3.4)
[2023-05-05 08:18] LABS: WBC 26.56 10^3/uL (4.4-10.8)
[2023-05-05 08:33] LABS: Diff Comment Diff Reviewed; RBC Morphology Normal
[2023-05-05 08:34] LABS: ALT 18 U/L (16-63); AST 31 U/L (15-37); Albumin 2.7 g/dL (3.4-5.0); Alkaline Phosphatase 133 U/L (46-116); Anion Gap 7.7 mmol/L (3-11); BUN 19 mg/dL (7-18); Bilirubin, Total 0.3 mg/dL (0.2-1.0); CO2 30.3 mmol/L (21.0-32.0); CREATININE 0.7 mg/dL (0.70-1.30); Chloride 102 mmol/L (98-107); Estimated GFR 106.14 (mL/min/1.73m2); FREE T4 1.02 ng/dL (0.76-1.46); Glucose 99 mg/dL (74-106); Magnesium 1.9 mg/dL (1.8-2.4); Potassium 3.7 mmol/L (3.5-5.1); Sodium 140 mmol/L (136-145); TSH 0.63 uIU/Ml (0.36-3.74); Total Protein 7.1 g/dL (6.4-8.2)
== END 2023-05-05 05:09 | disposition home or self-care (01) ==
LOC: LBO 05:09
PROVIDERS: Visit Provider Internal Medicine Medical Oncology
DX: C34.11 Malignant neoplasm of upper lobe, right bronchus or lung (principal); C79.72 Secondary malignant neoplasm of left adrenal gland
CPT/HCPCS: 36415; 80053; 83735; 84439; 84443; 85025

== ENCOUNTER 2023-06-02 04:54 | Outpatient (RCR) | payer OTHER, SELFPAY ==
[2023-05-12] MEDS: Normal Saline Flush 10 ML SYR IVP (10:01)
[2023-05-12 10:23] LABS: Abs Immature Grans 0.27 10^3/uL (0.0-0.06); Absolute Eosinophil Count 0.35 10^3/uL (0.0-0.7); Absolute Monocyte Count 1.34 10^3/uL (0.1-0.8); Basophils % 0.5; Eosinophils % 1.8; HCT 39.6 % (40.0-50.0); HGB 13.1 g/dL (13.5-17.5); Immature Grans % 1.4; MCH 30.3 pg (27.0-33.0); MCHC 33.1 % (32.0-36.0); MCV 92 fL (80-95); MPV 9.5 fL (8.0-11.0); Monocytes % 6.9; Neutrophils % 83.4; Platelet Count 384 10^3/uL (130-400); RBC 4.33 10^6/uL (4.36-5.78); RDW 17.7 % (11.8-14.1); RDW-SD 59.5 fL; WBC 19.43 10^3/uL (4.4-10.8)
[2023-05-12 10:27] LABS: Absolute Lymphocyte Count 1.17 10^3/uL (1.2-3.4)
[2023-05-12 10:57] LABS: ALT 18 U/L (16-63); AST 22 U/L (15-37); Albumin 2.7 g/dL (3.4-5.0); Alkaline Phosphatase 133 U/L (46-116); Anion Gap 9.1 mmol/L (3-11); BUN 19 mg/dL (7-18); Bilirubin, Total 0.3 mg/dL (0.2-1.0); CO2 28.9 mmol/L (21.0-32.0); CREATININE 0.7 mg/dL (0.70-1.30); Calcium 8.7 mg/dL (8.5-10.1); Chloride 105 mmol/L (98-107); Estimated GFR 106.14 (mL/min/1.73m2); FREE T4 1.05 ng/dL (0.76-1.46); Glucose 111 mg/dL (74-106); Magnesium 1.9 mg/dL (1.8-2.4); Potassium 3.5 mmol/L (3.5-5.1); Sodium 143 mmol/L (136-145); TSH 0.37 uIU/Ml (0.36-3.74); Total Protein 6.7 g/dL (6.4-8.2)
[2023-05-26] MEDS: Normal Saline Flush 10 ML SYR IVP (08:52)
[2023-05-26 09:42] LABS: HCT 41.4 % (40.0-50.0); MCH 29.3 pg (27.0-33.0); MCHC 31.4 % (32.0-36.0); MCV 93 fL (80-95); MPV 9.6 fL (8.0-11.0); Platelet Count 254 10^3/uL (130-400); RBC 4.44 10^6/uL (4.36-5.78); RDW 18.6 % (11.8-14.1); RDW-SD 62.9 fL; WBC 19.03 10^3/uL (4.4-10.8)
[2023-05-26 10:14] LABS: ALT 18 U/L (16-63); AST 41 U/L (15-37); Albumin 2.7 g/dL (3.4-5.0); Alkaline Phosphatase 139 U/L (46-116); BUN 13 mg/dL (7-18); Bilirubin, Total 0.4 mg/dL (0.2-1.0); CREATININE 0.7 mg/dL (0.70-1.30); Calcium 8.5 mg/dL (8.5-10.1); Chloride 103 mmol/L (98-107); Estimated GFR 106.14 (mL/min/1.73m2); FREE T4 0.84 ng/dL (0.76-1.46); Glucose 143 mg/dL (74-106); Magnesium 1.8 mg/dL (1.8-2.4); Potassium 3.2 mmol/L (3.5-5.1); Sodium 141 mmol/L (136-145); TSH 0.83 uIU/Ml (0.36-3.74); Total Protein 6.6 g/dL (6.4-8.2)
[2023-05-26 10:48] LABS: Absolute Eosinophil Count 0.19 10^3/uL (0.0-0.7); Absolute Lymphocyte Count 2.47 10^3/uL (1.2-3.4); Absolute Monocyte Count 2.09 10^3/uL (0.1-0.8); Atypical Lymphocytes % 6; Diff Comment Manual Differential; Metamyelocytes % 3; RBC Morphology Normal
[2023-06-02] MEDS: Normal Saline Flush 10 ML SYR IVP (07:47)
[2023-06-02 08:10] LABS: HCT 40.3 % (40.0-50.0); MCH 29.5 pg (27.0-33.0); MCHC 32.3 % (32.0-36.0); MCV 91 fL (80-95); Platelet Count 384 10^3/uL (130-400); RBC 4.41 10^6/uL (4.36-5.78); RDW 18.3 % (11.8-14.1); RDW-SD 58.9 fL; WBC 20.86 10^3/uL (4.4-10.8)
[2023-06-02 08:39] LABS: ALT 23 U/L (16-63); AST 28 U/L (15-37); Albumin 2.8 g/dL (3.4-5.0); Alkaline Phosphatase 148 U/L (46-116); Anion Gap 8.7 mmol/L (3-11); BUN 13 mg/dL (7-18); Bilirubin, Total 0.4 mg/dL (0.2-1.0); CO2 29.3 mmol/L (21.0-32.0); CREATININE 0.6 mg/dL (0.70-1.30); Calcium 8.9 mg/dL (8.5-10.1); Chloride 103 mmol/L (98-107); FREE T4 0.84 ng/dL (0.76-1.46); Glucose 142 mg/dL (74-106); Magnesium 1.9 mg/dL (1.8-2.4); Potassium 3.4 mmol/L (3.5-5.1); Sodium 141 mmol/L (136-145); TSH 0.98 uIU/Ml (0.36-3.74); Total Protein 6.8 g/dL (6.4-8.2)
[2023-06-02 08:42] LABS: Absolute Lymphocyte Count 1.04 10^3/uL (1.2-3.4); Absolute Monocyte Count 1.46 10^3/uL (0.1-0.8); Absolute Neutrophil Count 18.36 10^3/uL (1.2-6.7); Atypical Lymphocytes % 2
[2023-06-02 08:43] LABS: Diff Comment Manual Differential; RBC Morphology Normal
== END 2023-06-10 23:59 | disposition home or self-care (01) ==
LOC: INF 04:54
PROVIDERS: Visit Provider Internal Medicine Medical Oncology
DX: C34.11 Malignant neoplasm of upper lobe, right bronchus or lung (principal); C79.72 Secondary malignant neoplasm of left adrenal gland; Z45.2 Encounter for adjustment and management of vascular access device
CPT/HCPCS: 36591; 80053; 83735; 84439; 84443; 85025

== ENCOUNTER 2023-06-23 04:33 | Outpatient (RCR) | payer OTHER, SELFPAY ==
[2023-06-16] MEDS: Normal Saline Flush 10 ML SYR IVP (08:05)
[2023-06-16 08:25] LABS: Abs Immature Grans 0.89 10^3/uL (0.0-0.06); Absolute Monocyte Count 1.96 10^3/uL (0.1-0.8); Basophils % 0.5 %; Eosinophils % 0.7 %; HGB 12.3 g/dL (13.5-17.5); Immature Grans % 4.9 %; Lymphocytes % 7.1 %; MCH 28.7 pg (27.0-33.0); MCHC 31.5 % (32.0-36.0); MCV 91 fL (80-95); MPV 9.2 fL (8.0-11.0); Monocytes % 10.7 %; Neutrophils % 76.1 %; Nucleated RBC 0.3 % (0.0-0.3); Platelet Count 310 10^3/uL (130-400); RBC 4.28 10^6/uL (4.36-5.78); RDW 18.4 % (11.8-14.1); RDW-SD 60.4 fL; WBC 18.29 10^3/uL (4.4-10.8)
[2023-06-16 08:29] LABS: Absolute Basophil Count 0.09 10^3/uL (0.0-0.2); Absolute Eosinophil Count 0.13 10^3/uL (0.0-0.7); Absolute Neutrophil Count 13.92 10^3/uL (1.2-6.7)
[2023-06-16 08:40] LABS: ALT 21 U/L (16-63); AST 34 U/L (15-37); Albumin 2.7 g/dL (3.4-5.0); Alkaline Phosphatase 145 U/L (46-116); Anion Gap 7.5 mmol/L (3-11); BUN 14 mg/dL (7-18); Bilirubin, Total 0.4 mg/dL (0.2-1.0); CO2 29.5 mmol/L (21.0-32.0); CREATININE 0.7 mg/dL (0.70-1.30); Calcium 8.6 mg/dL (8.5-10.1); Chloride 104 mmol/L (98-107); Estimated GFR 105.49 (mL/min/1.73m2); Glucose 146 mg/dL (74-106); Magnesium 1.7 mg/dL (1.8-2.4); Potassium 3.3 mmol/L (3.5-5.1); Sodium 141 mmol/L (136-145); Total Protein 6.5 g/dL (6.4-8.2)
[2023-06-16 08:47] LABS: Diff Comment Diff Reviewed; RBC Morphology Normal
== END 2023-07-11 23:59 | disposition home or self-care (01) ==
LOC: INF 04:33
PROVIDERS: Visit Provider Internal Medicine Medical Oncology
DX: C79.72 Secondary malignant neoplasm of left adrenal gland (principal); C34.11 Malignant neoplasm of upper lobe, right bronchus or lung; Z45.2 Encounter for adjustment and management of vascular access device
CPT/HCPCS: 36591; 80053; 83735; 85025